=== PATIENT | male | born 1940 | race Caucasian/White ===

== ENCOUNTER 2021-08-13 16:02 | Inpatient (IN) | payer BC ==
[~2021-08-13] VITALS: Ht 175.3 cm; Wt 78.9 kg
--- NOTE | 2021-08-13 16:26 | NUR ---
FEVER/CHILLS, SOB SINCE MONDAY. ALSO C/O GLF AT THE SAME DAY. PATIENT A/OX4, BREATHING EVEN AND UNLABORED, SPO2 WITHIN RANGE ON ROOM AIR. NEEDS ATTENDED.
--- NOTE | 2021-08-13 16:40 | NUR ---
DR. MOSS AT BEDSIDE FOR EVAL.
[2021-08-13] MEDS ORDERED: IV NS 0.9% 1,000 ML BAG IV ONE ×2 (17:00→20:00)
[2021-08-13 17:50] LABS: BASOPHILS % (AUTO) 0.1 % (0.0-2.0); EOSINOPHILS % (AUTO) 0.5 % (0.0-6.0); HEMATOCRIT 48 % (39-51); HEMOGLOBIN 15.8 g/dL (13.5-17.5); LYMPHOCYTES # (AUTO) 0.3 K/uL (0.8-4.8); LYMPHOCYTES % (AUTO) 3.7 % (20.0-44.0); MEAN CORPUSCULAR HGB CONC 33 g/dl (31.0-36.0); MEAN CORPUSCULAR VOLUME 93 fL (80-96); MONOCYTES # (AUTO) 0.3 K/uL (0.1-1.30); MONOCYTES % (AUTO) 3.2 % (2.0-12.0); NEUTROPHILS # (AUTO) 7.4 K/uL (1.8-8.9); NEUTROPHILS % (AUTO) 92.5 % (43.0-81.0); PLATELET COUNT (AUTO) 125 K/uL (150-450); RED BLOOD CELL COUNT(AUTO) 5.09 MIL/uL (4.5-6.0)
[2021-08-13 18:03] LABS: CALCIUM, SERUM 9.5 mg/dL (8.5-10.1); CARBON DIOXIDE 24 mmol/L (21-32); CHLORIDE 104 mmol/L (98-107); GLUCOSE 86 mg/dL (74-106); SODIUM SERUM 139 mmol/L (136-145); UREA NITROGEN, BLOOD 28 mg/dL (7-18)
[2021-08-13 18:09] LABS: ALANINE AMINOTRANSFERASE 49 U/L (12-78); ALBUMIN 4.1 g/dL (3.4-5.0); ALKALINE PHOSPHATASE 116 U/L (46-116); ASPARTATE AMINOTRANSFERASE 64 U/L (15-37); BILIRUBIN,DIRECT 0.3 mg/dL (0.0-0.2); BILIRUBIN,TOTAL 1.1 mg/dL (0.2-1.0); TOTAL PROTEIN, SERUM 8.4 g/dL (6.4-8.2)
--- NOTE | 2021-08-13 19:08 | NUR ---
URINE SENT TO LAB
--- NOTE | 2021-08-13 19:10 | NUR ---
GAVE MOVESHEET AND CLINICALS TO ADMITTING
--- NOTE | 2021-08-13 19:30 | NUR ---
COVID SWAB COLLECTED AND SENT TO LAB
[2021-08-13 19:36] LABS: BILIRUBIN,URINE SMALL (NEGATIVE); COLOR,URINE YELLOW (YELLOW); LEUKOCYTE ESTERASE ,URINE Negative (NEGATIVE); NITRITE, URINE Negative (NEGATIVE); PH,URINE 5.5 (5.0-8.0); PROTEIN,URINE >=300 mg/dl (NEGATIVE); UGLUCOSE Negative (NEGATIVE)
[2021-08-13 19:41] LABS: BACTERIA,URINE Rare /HPF (None Seen); SQUAMOUS EPITHELIAL CELL,UR Few /HPF (None Seen); WBC,URINE NONE SEEN /HPF (0-3)
[2021-08-13] MEDS ORDERED: VANCOMYCIN 1 GM in IV D5W 250 ML IV ONE (20:00)
[2021-08-13] MEDS ORDERED: CEFEPIME 1 GM in IV D5W 50 ML IV ONE (20:00)
--- NOTE | 2021-08-13 20:07 | NUR ---
CALLED [facility], PAGED ALYSHA COY FOR ADMISSION
[2021-08-13] MEDS ORDERED: VANCOMYCIN 1 GM VIAL ONE (20:16)
[2021-08-13] MEDS ORDERED: CEFEPIME 1 GM VIAL ONE (20:23)
[2021-08-13] MEDS ORDERED: CEFEPIME 1 GM in IV D5W 50 ML IV SCH (20:30)
[2021-08-13] MEDS ORDERED: IPRATROPIUM NEB FS 0.5 MG/2.5 ML AMPUL.NEB NEB PRN (20:30)
[2021-08-13] MEDS ORDERED: ALBUTEROL FS 2.5 MG/3 ML VIAL.NEB NEB PRN (20:30)
--- NOTE | 2021-08-13 21:02 | NUR ---
Bibi najera in [facility] - 08/13/21 at 2112 by RUT room 329
[2021-08-13 21:25] LABS: C-REACTIVE PROTEIN 9.8 mg/dL (0.0-0.9)
--- NOTE | 2021-08-13 22:26 | NUR ---
TELE 106
--- NOTE | 2021-08-13 23:30 | NUR ---
RN ADMITTING NOTE PATIENT TRANSFERRED TO 106-1 FROM ER. PATIENT IS A/O X 4, ABLE TO MAKE NEEDS KNOWN. PATIENT NOTICED TO HAVE SOB, 2 L O2 PROVIDED SATTING 96%. PATIENT COMPLAINS OF R RIB PAIN D/T GLF ON MONDAY. SKIN ISSUES DOCUMENTED. PATIENT BROUGHT HOME MEDS, WILL GIVE TO PHARMACY IN AM. PATIENT IS CONTINENT OF BOTH BOWEL AND BLADDER. TELE MONITOR READS SR 80 BPM. BELONGINGS INVENTORIED. ORIENTED PATIENT TO ROOM, RN, OMAYRA. SAFETY MEASURES IN PLACE: BED LOCKED AND IN LOWEST POSITION, CALL LIGHT WITHIN REACH, SIDE RAILS UP. WILL MONITOR PATIENT CLOSELY.
--- NOTE | 2021-08-13 23:32 | NUR ---
ATTEMPTED TO GIVE REPORT, STAFF STATES THAT THEY WILL CALL ME BACK.
--- NOTE | 2021-08-13 23:43 | NUR ---
REPORT GIVEN TO JERE GUERIN FOR ANNA.
[2021-08-14] VITALS: BP 155/78
[2021-08-14] MEDS ORDERED: AMLO-212 PO (00:57)
[2021-08-14] MEDS ORDERED: ATOR80TA PO (00:57)
[2021-08-14] MEDS ORDERED: GABA-532 PO (00:57)
[2021-08-14] MEDS ORDERED: DIAZ10TA4 PO (00:57)
[2021-08-14] MEDS ORDERED: MIRT-90 PO (00:57)
[2021-08-14] MEDS: IV NS 0.9% 1,000 ML IV PRN ×2 (01:11→21:05)
--- NOTE | 2021-08-14 01:30 | NUR ---
RN NOTE NOTIFIED ALYSHA COY OF PATIENT'S RIB PAIN AND REQUEST TO HAVE IBUPROFEN FOR PAIN AND VALIUM FOR HIS ANXIETY AND FOR SLEEP. MD INSTRUCTED NURSING TO CALL HOME PHARMACY TO VERIFY DOSE OF VALIUM FIRST BEFORE IT CAN BE ORDERED. CALLED [facility] [address] [facility] [phone], CLOSED AT THIS TIME. WILL ENDORSE TO DAY SHIFT NURSE. OBTAINED ORDER FOR IBUPROFEN 400 MG RID PRN AND SEROQUEL 12.5 MG ONCE NOW.
[2021-08-14] MEDS ORDERED: IBUPROFEN 400 MG TABLET PO PRN (02:00)
[2021-08-14] MEDS ORDERED: QUETIAPINE FUMARATE 25 MG TABLET PO ONE (02:00)
--- NOTE | 2021-08-14 02:05 | NUR ---
RN NOTE PATIENT DROPPED FIRST 1/2 TAB OF SEROQUEL. PULLED ANOTHER TAB FROM PYXSIS. SEROQUEL GIVEN TO AID SLEEP AND IBUPROFEN ADMINISTERED FOR RIB PAIN.
--- NOTE | 2021-08-14 03:04 | NUR ---
REFUSES TO HAVE IVF AT THIS TIME. EDUCATION OF RISK AND BENEFITS PROVIDED. STILL REFUSING.
[2021-08-14 04:00] VITALS: BP 104/60
--- NOTE | 2021-08-14 04:15 | NUR ---
REFUSED TO HAVE VITAL SIGNS TAKEN FOR 399. WILL TRY TO TAKE VITALS AT A LATER TIME.
[2021-08-14 06:30] LABS: BASOPHILS % (AUTO) 0.1 % (0.0-2.0); EOSINOPHILS % (AUTO) 0.5 % (0.0-6.0); HEMATOCRIT 40 % (39-51); HEMOGLOBIN 13.5 g/dL (13.5-17.5); LYMPHOCYTES # (AUTO) 0.5 K/uL (0.8-4.8); LYMPHOCYTES % (AUTO) 9.5 % (20.0-44.0); MEAN CORPUSCULAR HGB CONC 34 g/dl (31.0-36.0); MEAN CORPUSCULAR VOLUME 92 fL (80-96); MONOCYTES # (AUTO) 0.3 K/uL (0.1-1.30); MONOCYTES % (AUTO) 5.6 % (2.0-12.0); NEUTROPHILS # (AUTO) 4.4 K/uL (1.8-8.9); NEUTROPHILS % (AUTO) 84.3 % (43.0-81.0); PLATELET COUNT (AUTO) 89 K/uL (150-450); RED BLOOD CELL COUNT(AUTO) 4.32 MIL/uL (4.5-6.0); WHITE BLOOD COUNT (AUTO) 5.2 K/uL (4.3-11.0)
--- NOTE | 2021-08-14 06:30 | NUR ---
RN CLOSING NOTE PATIENT HAS EYES CLOSED, EASILY AROUSED. A/O X 4, ABLE TO MAKE NEEDS KNOWN. PATIENT VERBALIZES THAT HE WOULD LIKE TO BE "BOTHERED" LESS. PATIENT TOLERATING 2L O2 SUPPLEMENTATION AT 95-96% O2 SAT, SOB AT REST NOTED. TELE MONITOR READS SR 82 BPM. PATIENT HAS A RFA 18 G, SALINE LOCKED AT THIS TIME D/T PATIENT REFUSAL. MD NOTIFIED OF INCREASED TROPONIN OF 0.207. SAFETY MEASURES IMPLEMENTED. ALL NEEDS MET AND ATTENDED. ALL ORDERS CARRIED OUT. WILL ENDORSE TO DAY SHIFT NURSE FOR ANNA.
[2021-08-14 07:00] LABS: ALANINE AMINOTRANSFERASE 31 U/L (12-78); ALBUMIN 2.7 g/dL (3.4-5.0); ALKALINE PHOSPHATASE 84 U/L (46-116); ASPARTATE AMINOTRANSFERASE 49 U/L (15-37); BILIRUBIN,TOTAL 0.8 mg/dL (0.2-1.0); CARBON DIOXIDE 22 mmol/L (21-32); CHLORIDE 109 mmol/L (98-107); CREATININE 2.7 mg/dL (0.6-1.3); GLUCOSE 108 mg/dL (74-106); MAGNESIUM 1.8 mg/dL (1.8-2.4); PHOSPHORUS 3.2 mg/dL (2.5-4.9); POTASSIUM 4.6 mmol/L (3.5-5.1); SODIUM SERUM 140 mmol/L (136-145); TOTAL PROTEIN, SERUM 5.9 g/dL (6.4-8.2); UREA NITROGEN, BLOOD 31 mg/dL (7-18)
--- NOTE | 2021-08-14 07:23 | NUR ---
RN OPENING NOTE RECEIVED PATIENT RESTING IN BED EASILY AROUSED. PATIENT IS A/O X 4, ABLE TO MAKE NEEDS KNOWN. PATIENT IS BREATHING EVENLY AND NONLABORED ON 2 LPM O2 SUPPLEMENTATION, NO SIGNS OF DISTRESS NOTED. TELE MONITOR READS SR. PATIENT HAS A RFA 18 G, SALINE LOCKED AT THIS TIME D/T PATIENT REFUSAL OF IV FLUIDS. PATIENT DOES NOT COMPLAIN OF PAIN AT THIS TIME. SAFETY MEASURES IMPLEMENTED. BED LOW LOCKED AND CALL LIGHT WITHIN REACH. WILL CONTINUE TO MONITOR
[2021-08-14 07:25] LABS: CHOLESTEROL 94 mg/dL (<200); HDL CHOLESTEROL 38 mg/dL (40-60); LDL 39 mg/dL (0-99); THYROID STIMULATING HORMONE 0.892 uIU/mL (0.358-3.74); TRIGLYCERIDES 76 mg/dL (30-150)
[2021-08-14] MEDS: CEFEPIME 2 GM in IV D5W 100 ML IV SCH ×2 (07:51→21:04)
[2021-08-14 08:00] VITALS: BP 108/74
[2021-08-14] MEDS: ASPIRIN 81 MG TAB.CHEW PO SCH (08:45)
[2021-08-14] MEDS ORDERED: ENOXAPARIN SODIUM 40 MG/0.4 ML DISP.SYRIN SQ SCH (09:00)
[2021-08-14 09:03] LABS: THYROID STIMULATING HORMONE 0.875 uIU/mL (0.358-3.74)
[2021-08-14 12:06] VITALS: BP 126/64
[2021-08-14 16:17] VITALS: BP 144/87
--- NOTE | 2021-08-14 18:25 | NUR ---
RN CLOSING NOTE PATIENT RESTING IN BED EASILY AROUSED. PATIENT IS A/O X 4, ABLE TO MAKE NEEDS KNOWN. PATIENT IS BREATHING EVENLY AND NONLABORED ON 2 LPM O2 SUPPLEMENTATION, NO SIGNS OF DISTRESS NOTED. TELE MONITOR READS SR. PATIENT HAS A RFA 18 G, SALINE LOCKED AT THIS TIME D/T PATIENT REFUSAL OF IV FLUIDS. EXPLAINED RISK AND BENEFITS STILL REFUSED. PATIENT DOES NOT COMPLAIN OF PAIN AT THIS TIME. ALL MEDICATION GIVEN ORDERED SAFETY MEASURES IMPLEMENTED. BED LOW LOCKED AND CALL LIGHT WITHIN REACH. WILL ENDORSE TO ONCOMING SHIFT
[2021-08-14 20:00] VITALS: BP 160/90
[2021-08-14] MEDS ORDERED: VANCOMYCIN 1 GM in IV D5W 250 ML IV SCH (21:00)
[2021-08-14] MEDS: HEPARIN SODIUM, PORCINE 5000 UNITS/1 ML VIAL SQ SCH (21:04)
[2021-08-15] VITALS (7 sets, daily range): BP systolic 139–177; BP diastolic 72–91
[2021-08-15] MEDS ORDERED: GABAPENTIN 100 MG CAPSULE PO SCH (03:30)
[2021-08-15] MEDS ORDERED: DIAZEPAM 10 MG TABLET PO PRN (03:30)
[2021-08-15] MEDS ORDERED: DIAZEPAM 5 MG TABLET PO ONE (03:30)
[2021-08-15] MEDS: DIAZEPAM 5 MG TABLET PO PRN (04:52)
[2021-08-15] MEDS ORDERED: hydrALAZINE HCL IV 20 MG VIAL IV ONE (05:00)
--- NOTE | 2021-08-15 05:35 | NUR ---
RN notes Alert and oriented, on 2lpm O2 via nasal cannula tolerating well. Complaining of pain on left shoulder. Asking for advil. MD refused to order Advil. It is contraindicated for his worsening renal function. Warm compress applied with help. Patient wants all his medicines that was placed in the pharmacy for safekeeping. Explained the hospital policy. Patient was very agitated. BP went up to 177/86. Administered hydralazine ordered by MD PRN. Gave diazepam 10mg with help. Patient continue to ask for his medication and threatens to alla the hospital and leave in the morning. MD/hemodialysis charge nurse aware. Kept clean and dry. Will endorse to next shift for continuity of care.
--- NOTE | 2021-08-15 07:22 | NUR ---
NURSE OPENING NOTE RECEIVE REPORT FROM OUT GOING NURSE. PATIENT IS A/O X4. PATIENT IS AMBULATORY. PATIENT IS REFUSED TO HAVE ANYTHING OB/GYN PHYSICIAN TO IV. PATIENT REFUSE MEDICATION AND IV FLUID. PATIENT REFUSE BLOOD DRAWN. WILL CONTINUE TO MONITOR.
[2021-08-15] MEDS: ASPIRIN 81 MG TAB.CHEW PO SCH (08:53)
[2021-08-15] MEDS: CEFEPIME 2 GM in IV D5W 100 ML IV SCH ×2 (08:53→20:41)
[2021-08-15] MEDS: AMLODIPINE BESYLATE 5 MG TABLET PO SCH (08:53)
[2021-08-15] MEDS: HEPARIN SODIUM, PORCINE 5000 UNITS/1 ML VIAL SQ SCH (08:54)
[2021-08-15] MEDS: IV NS 0.9% 1,000 ML IV PRN (11:33)
[2021-08-15 12:48] LABS: BASOPHILS % (AUTO) 0.1 % (0.0-2.0); EOSINOPHILS % (AUTO) 0.8 % (0.0-6.0); HEMATOCRIT 43 % (39-51); HEMOGLOBIN 14.6 g/dL (13.5-17.5); LYMPHOCYTES # (AUTO) 0.3 K/uL (0.8-4.8); LYMPHOCYTES % (AUTO) 8.9 % (20.0-44.0); MEAN CORPUSCULAR HGB CONC 34 g/dl (31.0-36.0); MEAN CORPUSCULAR VOLUME 92 fL (80-96); MONOCYTES # (AUTO) 0.2 K/uL (0.1-1.30); MONOCYTES % (AUTO) 5.3 % (2.0-12.0); NEUTROPHILS # (AUTO) 3.2 K/uL (1.8-8.9); NEUTROPHILS % (AUTO) 84.9 % (43.0-81.0); PLATELET COUNT (AUTO) 61 K/uL (150-450); RED BLOOD CELL COUNT(AUTO) 4.67 MIL/uL (4.5-6.0); WHITE BLOOD COUNT (AUTO) 3.7 K/uL (4.3-11.0)
[2021-08-15 12:58] LABS: ALANINE AMINOTRANSFERASE 36 U/L (12-78); ALBUMIN 2.7 g/dL (3.4-5.0); ALKALINE PHOSPHATASE 90 U/L (46-116); ASPARTATE AMINOTRANSFERASE 61 U/L (15-37); CALCIUM, SERUM 8.3 mg/dL (8.5-10.1); CARBON DIOXIDE 16 mmol/L (21-32); CHLORIDE 107 mmol/L (98-107); CREATININE 6.1 mg/dL (0.6-1.3); GLUCOSE 103 mg/dL (74-106); MAGNESIUM 1.7 mg/dL (1.8-2.4); PHOSPHORUS 2.7 mg/dL (2.5-4.9); POTASSIUM 4.3 mmol/L (3.5-5.1); SODIUM SERUM 137 mmol/L (136-145); TOTAL PROTEIN, SERUM 6.4 g/dL (6.4-8.2); UREA NITROGEN, BLOOD 51 mg/dL (7-18)
[2021-08-15 13:00] LABS: CREATINE KINASE, TOTAL 666 U/L (39-308)
--- NOTE | 2021-08-15 19:40 | NUR ---
RN NOTE PATIENT IN BED ALERT AND ORIENTED X4. ABLE TO MAKE NEEDS KNOWN. ON O2 2L VIA NASAL CANNULA, NO SIGNS OF RESPIRATORY DISTRESS. IV ACCESS ON LEFT AC RUNNING NS @50ML/HR, NO S/S OF INFILTRATION. BED LOCKED AND IN LOWEST POSITION. CALL LIGHT WITHIN REACH. ALL NEEDS ANTICIPATED.
--- NOTE | 2021-08-15 19:57 | NUR ---
NURSE CLOSING NOTE. PATIENT BEEN STABLE THROUGHOUT SHIFT. TOOK ALL MEDICATION. ORDER TO STOP LOVONOX. PATIENT GETTING CARDIO ANGIOGRAM TOMORROW MORNING. SAFETY MEASURE IN PLACE. BED ON THE LOWEST POSITION WITH HOB ELEVATED AND 3 SIDE RAIL UP. REPORT WAS GIVEN TO ON COMING NURSE.
--- NOTE | 2021-08-15 19:59 | NUR ---
DOCTOR SONG AND DOCTOR SCRUGGS CONFIRM ITS OK TO REMOVE GENETICS NURSE.
[2021-08-15] MEDS: MIRTAZAPINE 15 MG TABLET PO SCH (21:16)
[2021-08-15] MEDS: ATORVASTATIN 40 MG TABLET PO SCH (21:16)
--- NOTE | 2021-08-15 22:28 | NUR ---
RN NOTE PATIENT REFUSING IVF AT THIS TIME, RISKS AND BENEFITS EXPLAINED. STILL STRONGLY REFUSED.
[2021-08-16 04:00] VITALS: BP 141/79
[2021-08-16 06:17] LABS: BASOPHILS % (AUTO) 0.1 % (0.0-2.0); EOSINOPHILS % (AUTO) 3.3 % (0.0-6.0); HEMATOCRIT 36 % (39-51); HEMOGLOBIN 12.6 g/dL (13.5-17.5); LYMPHOCYTES # (AUTO) 0.4 K/uL (0.8-4.8); LYMPHOCYTES % (AUTO) 7.5 % (20.0-44.0); MEAN CORPUSCULAR HGB CONC 35 g/dl (31.0-36.0); MEAN CORPUSCULAR VOLUME 91 fL (80-96); MONOCYTES # (AUTO) 0.2 K/uL (0.1-1.30); MONOCYTES % (AUTO) 3.7 % (2.0-12.0); NEUTROPHILS # (AUTO) 4.2 K/uL (1.8-8.9); NEUTROPHILS % (AUTO) 85.4 % (43.0-81.0); PLATELET COUNT (AUTO) 69 K/uL (150-450); RED BLOOD CELL COUNT(AUTO) 4.01 MIL/uL (4.5-6.0); WHITE BLOOD COUNT (AUTO) 4.9 K/uL (4.3-11.0)
[2021-08-16 06:41] LABS: CALCIUM, SERUM 8.2 mg/dL (8.5-10.1); CARBON DIOXIDE 17 mmol/L (21-32); CHLORIDE 109 mmol/L (98-107); GLUCOSE 93 mg/dL (74-106); MAGNESIUM 1.7 mg/dL (1.8-2.4); PHOSPHORUS 3.1 mg/dL (2.5-4.9); POTASSIUM 4.4 mmol/L (3.5-5.1); SODIUM SERUM 139 mmol/L (136-145); UREA NITROGEN, BLOOD 65 mg/dL (7-18)
--- NOTE | 2021-08-16 06:46 | NUR ---
RN NOTE PATIENT RESTING IN BED. REFUSING O2 NASAL CANNULA AT THIS TIME, O2 SAT 96% IN ROOM AIR. ALSO REFUSING IVF, PATIENT STATED "HE WANTS TO REST." ALL NEEDS ATTENDED PROMPTLY. BED LOCKED AND IN LOWEST POSITION. CALL LIGHT WITHIN REACH. WILL ENDORSE TO AM SHIFT.
[2021-08-16 06:51] LABS: CREATININE 7.5 mg/dL (0.6-1.3)
--- NOTE | 2021-08-16 07:31 | NUR ---
NURSE OPENING NURSE PATIENT IS COMFORTABLE AND IN STABLE CONDITION. REFUSING NASAL CANULA. SATING AT 96-97%. A/O X4. ON MED SURG MONITORING. PATIENT REFUSE IV HYDRATION. SAFETY MEASURE IN PLACE. BED ON THE LOWEST POSITION WITH HOB ELEVATED AND 3 SIDE RAIL UP. WILL CONTINUE TO MONITOR.
[2021-08-16] MEDS: CEFEPIME 2 GM in IV D5W 100 ML IV SCH (08:05)
[2021-08-16] MEDS: AMLODIPINE BESYLATE 5 MG TABLET PO SCH (08:06)
[2021-08-16] MEDS: ASPIRIN 81 MG TAB.CHEW PO SCH (08:17)
--- NOTE | 2021-08-16 08:18 | NUR ---
NURSE NOTE PATIENT REFUSE ASPIRIN
--- NOTE | 2021-08-16 09:26 | NUR ---
WOUND CARE CONSULT: REVIEWED CHART, NURSING DOCUMENTATION AND PHOTOS WHICH INDICATE DRY ABRASIONS TO LOWER EXTREMITIES, PRESENT ON ADMISSION. RECOMMENDATIONS MADE FOR SKIN PROTECTION. DISCUSSED WITH NURSING STAFF. PT IS ON [employer]SE ISOFLEX LOW AIRLOSS BED. CURRENT KAYLEE SCORE IS 16. MD IN AGREEMENT WITH PLAN OF CARE.
[2021-08-16] MEDS ORDERED: Z GUARD REMEDY 2 OZ OINT TP PRN (09:30)
[2021-08-16] MEDS: Sodium Bicarbonate 100 MEQ in IV 1/2NS 1000 ML 1,000 ML IV SCH ×2 (11:34→21:30)
[2021-08-16] MEDS: Z GUARD REMEDY 2 OZ OINT TP SCH (11:35)
[2021-08-16 11:46] LABS: THYROID STIMULATING HORMONE 0.652 uIU/mL (0.358-3.74)
[2021-08-16 12:00] VITALS: BP 123/66
[2021-08-16] MEDS: Magnesium 1GM/D5W 100ML PREMIX 100 ML IV SCH ×2 (15:14→18:30)
--- NOTE | 2021-08-16 18:18 | NUR ---
NURSE OPENING NOTE PATIENT MAINTAIN BASELINE CONDITION THROUGH OUT SHIFT. REMAIN ON 2L OF OXYGEN SATING @96-97%. A/O X4. AMBULATE WITH ASSISTANCE. DID NOT EAT ANY FOOD GIVEN FOR BREAKFAST, LUNCH, AND DINER. HAD 3 JELLOW. PATIENT NEED TO BE NPO AFTER MIDNIGHT. PATIENT WILL GET CT AND ULTRASOUND IN THE MORNING. PATIENT IS GETTING MAGNESIUM SULFATE 2G AND SODIUM BICARB DRIP. SAFETY MEASURE IN PLACE BED ON THE LOWEST POSITION WITH HOB ELEVATED AND 3 SIDE RAIL UP. CALL LIGHT WITHIN REACH. WILL CONTINUE TO MONITOR AND GIVE REPORT TO ON COMING NURSE.
--- NOTE | 2021-08-16 19:30 | NUR ---
RN NOTE RECEIVED PT IN BED, ALERT AND ORIENTED X4. NOT IN ANY DISTRESS. PT ON 2L NC. DENIES SOB OR PAIN. PT ON NA BICARB IN 1/2NS AT 100 ML/HR. INFUSING WELL. PT AWAITING TO BE TRANSFERRED TO ROOM 328. WILL MONITOR UNTIL TRANSFER. ALL SAFETY MEASURES IN PLACE.
--- NOTE | 2021-08-16 20:09 | NUR ---
RN NOTE PT GOING TO RM 328. REPORT GIVEN TO TEMO.
--- NOTE | 2021-08-16 20:18 | NUR ---
PATIENT ARRIVED ON THE FLOOR FROM [place], AWAKE. A/O X4, FORGETFUL. NO S/S OF DISTRESS NOTED. NO COMPLAIN OF PAIN. CALL LIGHT WITHIN REACH. BED ALARM ON. BED IN LOWEST AND LOCKED POSITION. HOB ELEVATED. WITH O2 AT 2L/MIN NASAL CANNULA.REMINDED THE PT RE: URINE COLLECTION AND STOOL COLLECTION, PATIENT VERBALIZED UNDERSTANDING.NPO POST MN EXCEPT MEDS PATIENT VERBALIZED UNDERSTANDING. OMAYRA RECINOS AWARE.
[2021-08-16 20:52] VITALS: BP 132/61
[2021-08-16 21:00] VITALS: BP 132/61
[2021-08-16] MEDS: MIRTAZAPINE 15 MG TABLET PO SCH (22:00)
[2021-08-16] MEDS: ATORVASTATIN 40 MG TABLET PO SCH (22:00)
[2021-08-17 02:07] LABS: CREATININE KINASE (CK),MB 3.1 ng/mL (0.0-10.4)
[2021-08-17] MEDS: Sodium Bicarbonate 100 MEQ in IV 1/2NS 1000 ML 1,000 ML IV SCH (07:30)
[2021-08-17 08:00] VITALS: BP 148/76
[2021-08-17 08:07] LABS: *SPE ALPHA-1-GLOBULIN 0.4 g/dL (0.0-0.4); *SPE ALPHA-2-GLOBULIN 0.8 g/dL (0.4-1.0); *SPE BETA GLOBULIN 0.5 g/dL (0.7-1.3); *SPE M-SPIKE 0.9 g/dL (Not Observed)
[2021-08-17] MEDS: GABAPENTIN 100 MG CAPSULE PO PRN (08:37)
--- NOTE | 2021-08-17 08:47 | NUR ---
given neurontin for generalized pain.
[2021-08-17 08:57] LABS: BASOPHILS % (AUTO) 0.3 % (0.0-2.0); EOSINOPHILS % (AUTO) 6.1 % (0.0-6.0); HEMATOCRIT 39 % (39-51); HEMOGLOBIN 13.1 g/dL (13.5-17.5); LYMPHOCYTES # (AUTO) 0.4 K/uL (0.8-4.8); LYMPHOCYTES % (AUTO) 9.6 % (20.0-44.0); MEAN CORPUSCULAR HGB CONC 34 g/dl (31.0-36.0); MEAN CORPUSCULAR VOLUME 92 fL (80-96); MONOCYTES # (AUTO) 0.2 K/uL (0.1-1.30); MONOCYTES % (AUTO) 5.4 % (2.0-12.0); NEUTROPHILS # (AUTO) 3.1 K/uL (1.8-8.9); NEUTROPHILS % (AUTO) 78.6 % (43.0-81.0); RED BLOOD CELL COUNT(AUTO) 4.21 MIL/uL (4.5-6.0); WHITE BLOOD COUNT (AUTO) 3.9 K/uL (4.3-11.0)
[2021-08-17] MEDS: ASPIRIN 81 MG TAB.CHEW PO SCH ×2 (09:00→09:56)
[2021-08-17 09:07] LABS: PLATELET COUNT (AUTO) 50 K/uL (150-450)
[2021-08-17 09:15] LABS: CALCIUM, SERUM 8.5 mg/dL (8.5-10.1); CARBON DIOXIDE 17 mmol/L (21-32); CHLORIDE 107 mmol/L (98-107); GLUCOSE 86 mg/dL (74-106); MAGNESIUM 2.5 mg/dL (1.8-2.4); PHOSPHORUS 2.8 mg/dL (2.5-4.9); POTASSIUM 4.6 mmol/L (3.5-5.1); SODIUM SERUM 140 mmol/L (136-145)
[2021-08-17 09:16] LABS: UREA NITROGEN, BLOOD 82 mg/dL (7-18)
[2021-08-17 09:17] LABS: CREATININE 9.8 mg/dL (0.6-1.3)
[2021-08-17] MEDS: AMLODIPINE BESYLATE 5 MG TABLET PO SCH (09:55)
[2021-08-17] MEDS: Z GUARD REMEDY 2 OZ OINT TP SCH (09:57)
[2021-08-17 10:06] LABS: BAND % (MANUAL) 7 % (0.0-5.0); EOSINOPHILS % (MANUAL) 6 % (0-4); LYMPHOCYTES % (MANUAL) 10 % (16-48); MONOCYTES % (MANUAL) 4 % (0-11.0); NEUTROPHILS % (MANUAL) 72 (42-76); REACTIVE LYMPHOCYTES 1 % (0-0)
[2021-08-17] MEDS: Sodium Bicarbonate 100 MEQ in IV 1/2NS 1000 ML 1,000 ML IV PRN (12:49)
--- NOTE | 2021-08-17 15:00 | NUR ---
urine and stool specimens sent down as ordered.
[2021-08-17 16:32] VITALS: BP 136/92
--- NOTE | 2021-08-17 16:40 | NUR ---
C/O IV LEAKING AND EVERY TIME RN IN TO RM. PT. REFUSES IV RESTART.COMPLAINING OFTEN.
[2021-08-17 17:05] LABS: COLOR,URINE DARK YELLOW (YELLOW); PH,URINE 5.5 (5.0-8.0); PROTEIN,URINE >300 mg/dl (NEGATIVE)
[2021-08-17 17:06] LABS: BILIRUBIN,URINE SMALL (NEGATIVE); LEUKOCYTE ESTERASE ,URINE NEGATIVE (NEGATIVE); NITRITE, URINE NEGATIVE (NEGATIVE); UGLUCOSE NEGATIVE (NEGATIVE); UROBILINOGEN,URINE 0.2 EU/dL (0.2)
[2021-08-17 17:14] LABS: BACTERIA,URINE Moderate /HPF (None Seen); SQUAMOUS EPITHELIAL CELL,UR Moderate /HPF (None Seen)
[2021-08-17 17:15] LABS: FINE GRANULAR CASTS,URINE Moderate /LPF (None Seen)
[2021-08-17 17:47] LABS: CREATININE, URINE 275.3 MG/DL (30.0-125.0)
[2021-08-17 18:05] LABS: URINE TOTAL PROTEIN 2427.8 mg/dL (0-11.9)
[2021-08-17 18:19] LABS: EOSINOPHIL,URINE None Seen
--- NOTE | 2021-08-17 19:20 | NUR ---
MS RN OPENING NOTES: RECEIVED PATIENT IN BED, RESTING COMFORTABLY, A/O X4. NO S/S OF DISTRESS NOTED. NO COMPLAIN OF PAIN. CALL LIGHT WITHIN REACH. BED IN LOWEST AND LOCKED POSITION. BEDSIDE COMMODE NEAR THE PATIENT.
[2021-08-17 20:00] VITALS: BP 168/80
[2021-08-17] MEDS: MIRTAZAPINE 15 MG TABLET PO SCH (21:50)
[2021-08-17] MEDS: TEMAZEPAM 15 MG CAPSULE PO SCH (21:50)
[2021-08-17] MEDS: ATORVASTATIN 40 MG TABLET PO SCH (21:50)
--- NOTE | 2021-08-18 06:17 | NUR ---
MS RN CLOSING NOTES: PATIENT IN BED, ASLEEP, EASILY AROUSABLE. NO S/S OF DISTRESS NOTED. CALL LIGHT WITHIN REACH. BED IN LOWEST AND LOCKED POSITION. BED ALARM ON. NO COMPLAIN OF PAIN.
[2021-08-18 07:38] LABS: CALCIUM, SERUM 8.5 mg/dL (8.5-10.1); CARBON DIOXIDE 19 mmol/L (21-32); CHLORIDE 106 mmol/L (98-107); GLUCOSE 87 mg/dL (74-106); MAGNESIUM 2.4 mg/dL (1.8-2.4); PHOSPHORUS 3.1 mg/dL (2.5-4.9); POTASSIUM 4.2 mmol/L (3.5-5.1); SODIUM SERUM 139 mmol/L (136-145)
[2021-08-18 07:41] LABS: BASOPHILS % (AUTO) 0.2 % (0.0-2.0); CREATININE 10.7 mg/dL (0.6-1.3); EOSINOPHILS % (AUTO) 7.3 % (0.0-6.0); HEMATOCRIT 35 % (39-51); HEMOGLOBIN 12.2 g/dL (13.5-17.5); LYMPHOCYTES # (AUTO) 0.6 K/uL (0.8-4.8); LYMPHOCYTES % (AUTO) 13.8 % (20.0-44.0); MEAN CORPUSCULAR HGB CONC 34 g/dl (31.0-36.0); MEAN CORPUSCULAR VOLUME 91 fL (80-96); MONOCYTES # (AUTO) 0.3 K/uL (0.1-1.30); NEUTROPHILS # (AUTO) 2.9 K/uL (1.8-8.9); NEUTROPHILS % (AUTO) 70.7 % (43.0-81.0); PLATELET COUNT (AUTO) 63 K/uL (150-450); RED BLOOD CELL COUNT(AUTO) 3.89 MIL/uL (4.5-6.0); UREA NITROGEN, BLOOD 94 mg/dL (7-18); WHITE BLOOD COUNT (AUTO) 4.2 K/uL (4.3-11.0)
--- NOTE | 2021-08-18 07:48 | NUR ---
MS RN OPENING NOTES RECEIVED PATIENT IN BED, RESTING COMFORTABLY. A/O X4. ON RA, BREATHING EVENLY AND UNLABORED. NO S/S OF DISTRESS NOTED. IV ACCESS ON RFA #22 1/2 NS + 50 MEQ NA BICARB RUNNING AT 100 ML/HR. BEDSIDE COMMODE NEAR THE PATIENT. SAFETY PRECAUTIONS IN PLACE: BED IN LOWEST AND LOCKED POSITION, SIDERAILS UP X 2, CALL LIGHT WITHIN REACH. WILL CONTINUE TO MONITOR PATIENT.
[2021-08-18 08:00] VITALS: BP 129/98
[2021-08-18] MEDS: ASPIRIN 81 MG TAB.CHEW PO SCH ×2 (08:19→08:27)
[2021-08-18] MEDS: AMLODIPINE BESYLATE 5 MG TABLET PO SCH (08:20)
[2021-08-18] MEDS: Z GUARD REMEDY 2 OZ OINT TP SCH (08:21)
[2021-08-18 11:07] LABS: *ANCANTIMYELOPEROXIDASE (MPO) <9.0 U/mL (0.0-9.0)
[2021-08-18] MEDS: Sodium Bicarbonate 100 MEQ in IV 1/2NS 1000 ML 1,000 ML IV PRN (11:09)
[2021-08-18] MEDS: ACIDOPHILUS/BULGARICUS 1 EACH TAB.CHEW PO SCH ×2 (12:11→16:23)
[2021-08-18 13:07] LABS: *ANCA ATYPICAL p-ANCA <1:20 titer (Neg:<1:20); *ANCA CYTOPLASMIC (C-ANCA) <1:20 titer (Neg:<1:20); *ANCA PERINUCLEAR (P-ANCA) <1:20 titer (Neg:<1:20); *ANCANTIPROTEINASE 3 (PR-3) AB 7.4 U/mL (0.0-3.5)
[2021-08-18] MEDS: HYDROCODONE/APAP 10/325MG TABLET PO PRN (15:15)
--- NOTE | 2021-08-18 15:15 | NUR ---
RN NOTE PATIENT COMPLAINED OF SEVERE RIB PAIN 07/09. MD MADE AWARE WITH NEW ORDER FOR NORCO 10/325 Q6HRS PRN AND CHEST XRAY TOMORROW AM. VITALS WNL, WILL CONTINUE TO MONITOR
[2021-08-18 16:00] VITALS: BP 161/78
--- NOTE | 2021-08-18 17:10 | NUR ---
RN NOTE PER DR ANGELES, HEMODIALYSIS CATHETER IN FEMORAL OKAY TO USE FOR DIALYSIS
--- NOTE | 2021-08-18 18:34 | NUR ---
MS RN CLOSING NOTE PATIENT IN BED, AWAKE RESTING COMFORTABLY. A/O X4. ON RA, BREATHING EVENLY AND UNLABORED. NO SOB AND NO S/S OF DISTRESS NOTED. IV ACCESS ON RFA #22 1/2 NS + 50 MEQ NA BICARB RUNNING AT 100 ML/HR. R FEMORAL HD CATH INTACT AND PATENT. BEDSIDE COMMODE NEAR THE PATIENT. SAFETY PRECAUTIONS IN PLACE: BED IN LOWEST AND LOCKED POSITION, SIDERAILS UP X 2, CALL LIGHT WITHIN REACH. WILL ENDORSE TO TROLLEY COACH DRIVER NURSE FOR ANNA.
--- NOTE | 2021-08-18 19:20 | NUR ---
MS RN OPENING NOTES: RECEIVED PATIENT IN BED, AWAKE, A/O X4. NO S/S OF DISTRESS NOTED. NO COMPLAIN OF PAIN. HD GOING. CALL LIGHT WITHIN REACH. BED IN LOWEST AND LOCKED POSITION.
[2021-08-18 20:00] VITALS: BP 163/88
[2021-08-18] MEDS: MIRTAZAPINE 15 MG TABLET PO SCH (22:26)
[2021-08-18] MEDS: ATORVASTATIN 40 MG TABLET PO SCH (22:26)
[2021-08-18] MEDS: TEMAZEPAM 15 MG CAPSULE PO SCH (22:27)
--- NOTE | 2021-08-19 05:24 | NUR ---
IV PULLED OUT BY THE PATIENT.
[2021-08-19 06:31] LABS: BASOPHILS % (AUTO) 0.1 % (0.0-2.0); EOSINOPHILS % (AUTO) 5.5 % (0.0-6.0); HEMATOCRIT 34 % (39-51); HEMOGLOBIN 11.9 g/dL (13.5-17.5); LYMPHOCYTES # (AUTO) 0.8 K/uL (0.8-4.8); LYMPHOCYTES % (AUTO) 15.6 % (20.0-44.0); MEAN CORPUSCULAR HGB CONC 35 g/dl (31.0-36.0); MEAN CORPUSCULAR VOLUME 90 fL (80-96); MONOCYTES # (AUTO) 0.4 K/uL (0.1-1.30); MONOCYTES % (AUTO) 8.3 % (2.0-12.0); NEUTROPHILS # (AUTO) 3.4 K/uL (1.8-8.9); NEUTROPHILS % (AUTO) 70.5 % (43.0-81.0); PLATELET COUNT (AUTO) 67 K/uL (150-450); WHITE BLOOD COUNT (AUTO) 4.8 K/uL (4.3-11.0)
--- NOTE | 2021-08-19 07:30 | NUR ---
RN NOTES PATIENT IN BED RESTING, NO SIGNS OF ACUTE DISTRESS NOTED. ON ROOM AIR, NO SOB NOTED. SL ON RH #24G INTACT, WITH 1/2 NS + 50 MEQ NA BICARBONATE @100ML/HR ONGOING. PATIENT AMBULATORY, SAFETY MEASURES IN PLACE.
[2021-08-19 07:35] LABS: CALCIUM, SERUM 7.9 mg/dL (8.5-10.1); CARBON DIOXIDE 24 mmol/L (21-32); CHLORIDE 103 mmol/L (98-107); GLUCOSE 83 mg/dL (74-106); POTASSIUM 3.9 mmol/L (3.5-5.1); SODIUM SERUM 138 mmol/L (136-145); UREA NITROGEN, BLOOD 56 mg/dL (7-18)
[2021-08-19 07:47] LABS: CREATININE 7.9 mg/dL (0.6-1.3)
[2021-08-19 08:00] VITALS: BP 142/70
[2021-08-19] MEDS: ASPIRIN 81 MG TAB.CHEW PO SCH (09:18)
[2021-08-19] MEDS: ACIDOPHILUS/BULGARICUS 1 EACH TAB.CHEW PO SCH ×3 (09:18→16:33)
[2021-08-19] MEDS: AMLODIPINE BESYLATE 5 MG TABLET PO SCH (09:19)
[2021-08-19] MEDS: Z GUARD REMEDY 2 OZ OINT TP SCH (09:57)
--- NOTE | 2021-08-19 11:00 | NUR ---
RN NOTES PATIENT PICKED UP BY RADIOLOGY FOR BONE SURVEY PROCEDURE VIA WHEELCHAIR, ACCOMPANIED BY 2 RAD TECHS.
[2021-08-19 12:06] LABS: *ANA ANTI-CENTROMERE B AB <0.2 AI (0.0-0.9); *ANA ANTI-DNA(DS) AB, QN 1 IU/mL (0-9); *ANA ANTI-JO-1 <0.2 AI (0.0-0.9); *ANA ANTICHROMATIN ANTIBODY <0.2 AI (0.0-0.9); *ANA RNP ANTIBODIES <0.2 AI (0.0-0.9); *ANA SJOGREN'S ANTI-SS-A <0.2 AI (0.0-0.9); *ANA SJOGREN'S ANTI-SS-B <0.2 AI (0.0-0.9); *ANAANTI-SCLERODERMA-70 AB <0.2 AI (0.0-0.9); *ANASMITH AB <0.2 AI (0.0-0.9)
[2021-08-19] MEDS: HYDROCODONE/APAP 10/325MG TABLET PO PRN (12:31)
--- NOTE | 2021-08-19 13:23 | NUR ---
RN NOTES PATIENT SEEN BY MAIN CORRALES, ANNELIESE, AND DR. ANGUIANO TODAY.
[2021-08-19] MEDS: DIAZEPAM 5 MG TABLET PO PRN (13:26)
[2021-08-19] MEDS ORDERED: LIDOCAINE 1% INJ 50 ML MDV IJ ONE (13:30)
--- NOTE | 2021-08-19 13:40 | NUR ---
RN NOTES PATIENT SIGNED CONSENT FORM FOR BONE MARROW BIOPSY PROCEDURE AND PLACED IN CHART. PER PATIENT, HE WOULD LIKE THE PROCEDURE TO BE DONE TOMORROW. DR. ANGUIANO IN THE UNIT AND MADE AWARE, AGREED W/ SCHEDULE.
[2021-08-19] MEDS: METHIMAZOLE (5MG) 5 MG TABLET PO SCH ×2 (14:45→21:00)
--- NOTE | 2021-08-19 15:05 | NUR ---
RN NOTES SPOKE W/ MAIN CORRALES NP, REGARDING PATIENT'S BICARB IVF. PER NNPS, OK TO HOLD OFF ON THE FLUIDS FOR NOW.
[2021-08-19 16:00] VITALS: BP 198/91
[2021-08-19] MEDS: Sodium Bicarbonate 100 MEQ in IV 1/2NS 1000 ML 1,000 ML IV PRN (16:34)
--- NOTE | 2021-08-19 18:25 | NUR ---
RN NOTES DR. SAN IN THE UNIT TO SEE THE PATIENT AND MADE AWARE OF PLAN OF CARE.
--- NOTE | 2021-08-19 18:56 | NUR ---
RN NOTES PATIENT IN BED AWAKE, A/O X4. SON AT BEDSIDE. NO SIGNS OF ACUTE DISTRESS NOTED. C/O PAIN ON RIGHT RIB AREA, BUT TOLERABLE. ON ROOM AIR, SPO2 96%. WITH SL ON RIGHT HAND #24G, INTACT. IVF ON HOLD PER DR. CORRALES. HAD HD TODAY WITH NO UF, TOLERATED PROCEDURE WELL. ALL DUE MEDS GIVEN, TOLERATED WELL. NEEDS ATTENDED. CALL LIGHT PLACED WITHIN ASY REACH, BED ON ITS LOWEST POSITION, BREAKS ON, BSR UP. CONTINUE WITH POC.
--- NOTE | 2021-08-19 19:52 | NUR ---
MS RN OPENING NOTES RECEIVED PATIENT IN BED, AWAKE. AOx4. ABLE TO MAKE NEEDS KNOWN. ON ROOM AIR AND TOLERATING WELL. NO SOB NOTED. NO S/SX OF RESPIRATORY DISTRESS. IV ACCESS IN R HAND #24. IV FLUIDS CURRENTLY BEING HELD. IV IS INTACT, PATENT AND FLUSHING WELL. SAFETY PRECAUTIONS IN PLACE: BED IN LOWEST, LOCKED POSITION, SIDE RAILS UP X 2, BRAKES ON. CALL LIGHT AND TABLE WITHIN REACH. WILL CONTINUE TO MONITOR.
[2021-08-19 20:20] VITALS: BP 151/94
[2021-08-19] MEDS: TEMAZEPAM 15 MG CAPSULE PO SCH (21:19)
[2021-08-19] MEDS: MIRTAZAPINE 15 MG TABLET PO SCH (21:19)
[2021-08-19] MEDS: ATORVASTATIN 40 MG TABLET PO SCH (21:20)
[2021-08-20] MEDS: METHIMAZOLE (5MG) 5 MG TABLET PO SCH ×3 (05:29→20:10)
--- NOTE | 2021-08-20 05:56 | NUR ---
PT REMOVED IV. ATTEMPTED TO PLACE NEW IV BUT PT BECAME ANGRY AND REFUSED. WILL ATTEMPT AGAIN AT A LATER TIME.
--- NOTE | 2021-08-20 06:57 | NUR ---
MS RN CLOSING NOTES PATIENT IN BED, AWAKE. AOx3-4. ABLE TO MAKE NEEDS KNOWN. ON ROOM AIR AND TOLERATING WELL. NO SOB NOTED. NO S/SX OF RESPIRATORY DISTRESS. IV ACCESS IN R HAND #24. IV FLUIDS CURRENTLY BEING HELD. IV IS INTACT, PATENT AND FLUSHING WELL. ALL NEEDS MET. PT KEPT CLEAN AND DRY. SAFETY PRECAUTIONS IN PLACE: BED IN LOWEST, LOCKED POSITION, SIDE RAILS UP X 2, BRAKES ON. CALL LIGHT AND TABLE WITHIN REACH. WILL ENDORSE TO ONCOMING SHIFT.
[2021-08-20] MEDS: HYDROCODONE/APAP 10/325MG TABLET PO PRN ×3 (07:30→17:59)
--- NOTE | 2021-08-20 07:55 | NUR ---
RN NOTES PATIENT REQUESTED PAIN MEDICATION FOR RIGHT RIB PAIN; ADMINISTERED INDICATED. PER PATIENT HE WANTS TO REST IN BED AND WOULD LIKE THE LEFT SIDE RAIL TO BE DOWN SO HIS HEAD WILL BE COMFORTABLE WHEN HE LIES ON HIS SIDE.
[2021-08-20 08:00] VITALS: BP 149/81
--- NOTE | 2021-08-20 08:00 | NUR ---
RN NOTES RECEIVED PATIENT IN BED, AWAKE. A/Ox3-4. ABLE TO MAKE NEEDS KNOWN. ON ROOM AIR AND TOLERATING WELL. NO SOB NOTED. NO S/SX OF RESPIRATORY DISTRESS. SAFETY PRECAUTIONS IN PLACE: BED IN LOWEST, LOCKED POSITION, SIDE RAILS UP X 2, BRAKES ON. CALL LIGHT AND TABLE WITHIN REACH. WILL CONTINUE TO MONITOR.
[2021-08-20] MEDS: Z GUARD REMEDY 2 OZ OINT TP SCH (08:21)
[2021-08-20] MEDS: AMLODIPINE BESYLATE 5 MG TABLET PO SCH (09:08)
[2021-08-20] MEDS: ACIDOPHILUS/BULGARICUS 1 EACH TAB.CHEW PO SCH ×3 (09:08→17:51)
[2021-08-20] MEDS: ASPIRIN 81 MG TAB.CHEW PO SCH (09:08)
--- NOTE | 2021-08-20 11:02 | NUR ---
RN NOTES PATIENT ASSISTED W/ REPOSITIONING IN BED.
[2021-08-20 11:10] LABS: BASOPHILS % (AUTO) 0.1 % (0.0-2.0); EOSINOPHILS % (AUTO) 3.1 % (0.0-6.0); HEMATOCRIT 34 % (39-51); HEMOGLOBIN 11.8 g/dL (13.5-17.5); LYMPHOCYTES # (AUTO) 0.9 K/uL (0.8-4.8); LYMPHOCYTES % (AUTO) 14.6 % (20.0-44.0); MEAN CORPUSCULAR HGB CONC 35 g/dl (31.0-36.0); MEAN CORPUSCULAR VOLUME 90 fL (80-96); MONOCYTES # (AUTO) 0.4 K/uL (0.1-1.30); MONOCYTES % (AUTO) 6.5 % (2.0-12.0); NEUTROPHILS # (AUTO) 4.7 K/uL (1.8-8.9); NEUTROPHILS % (AUTO) 75.7 % (43.0-81.0); PLATELET COUNT (AUTO) 90 K/uL (150-450); RED BLOOD CELL COUNT(AUTO) 3.75 MIL/uL (4.5-6.0); WHITE BLOOD COUNT (AUTO) 6.2 K/uL (4.3-11.0)
[2021-08-20 11:30] LABS: CALCIUM, SERUM 7.8 mg/dL (8.5-10.1); CARBON DIOXIDE 24 mmol/L (21-32); CHLORIDE 104 mmol/L (98-107); CREATININE 6.7 mg/dL (0.6-1.3); GLUCOSE 87 mg/dL (74-106); POTASSIUM 4.2 mmol/L (3.5-5.1); SODIUM SERUM 138 mmol/L (136-145); UREA NITROGEN, BLOOD 43 mg/dL (7-18)
--- NOTE | 2021-08-20 12:05 | NUR ---
RN NOTES PATIENT SEEN BY MAIN CORRALES NP, AND ANITRA ONCO RESEARCH ANTHROPOLOGIST, INFORMED ABOUT PLAN OF CARE.
[2021-08-20 13:53] LABS: EOSINOPHILS % (MANUAL) 4 % (0-4); LYMPHOCYTES % (MANUAL) 14 % (16-48); MONOCYTES % (MANUAL) 6 % (0-11.0); NEUTROPHILS % (MANUAL) 76 (42-76)
[2021-08-20] MEDS: DIAZEPAM 5 MG TABLET PO PRN (14:16)
[2021-08-20 16:00] VITALS: BP 146/78
[2021-08-20] MEDS: Sodium Bicarbonate 100 MEQ in IV 1/2NS 1000 ML 1,000 ML IV PRN (16:24)
--- NOTE | 2021-08-20 18:30 | NUR ---
RN NOTES BONE MARROW BIOPSY DONE BY DR. ANGUIANO, PROCEDURE TOLERATED WELL. SAMPLE SPECIMEN SENT TO LABS. BANDAGE ON AT BIOPSY SITE ON RIGHT POSTERIOR SIDE, MINIMAL BLEEDING NOTED. WILL CONTINUE TO MONITOR PATIENT.
--- NOTE | 2021-08-20 19:00 | NUR ---
RN NOTES PATIENT IN BED, AWAKE A/O X 3-4, VERBALLY RESPONSIVE, NO SIGNS OF ACUTE DISTRESS NOTED. ON ROOM AIR, SPO2 96%, NO SOB NOTED. S/P BONE MARROW BIOPSY, SITE WITHOUT ANY ACTIVE BLEEDING NOTED, BANDAGE IN PLACE. COMFORT AND SAFETY MEASURE PROVIDED. BED PLACED ON ITS LOWEST POSITION, BRAKES ON, BSR UP, TABLE WITHIN EASY REACH. ENDORSED TO NEXT SHIFT.
--- NOTE | 2021-08-20 19:20 | NUR ---
RN NOTE RECEIVED PT IN BED, AWAKE/ALERT, ABLE TO VERBALIZE NEEDS. HE DENIES PAIN AT THIS TIME. DENIES SOB. ON ROOM AIR AND [place] WELL. R-FEMORAL HD CATH IN PLACE/INTACT. PT IN NO ACUTE DISTRESS. SAFETY MEASURES IN PLACE, BED IN LOWEST LOCKED POSITION, S/R UPX2, CALL LIGHT WITHIN REACH. WILL CONT TO MONITOR.
[2021-08-20 20:00] VITALS: BP 148/80
[2021-08-20] MEDS: GABAPENTIN 100 MG CAPSULE PO PRN (20:10)
[2021-08-20 20:21] LABS: BASOPHILS % (AUTO) 0.3 % (0.0-2.0); EOSINOPHILS % (AUTO) 2.9 % (0.0-6.0); HEMATOCRIT 31 % (39-51); LYMPHOCYTES # (AUTO) 0.9 K/uL (0.8-4.8); LYMPHOCYTES % (AUTO) 15.2 % (20.0-44.0); MEAN CORPUSCULAR HGB CONC 35 g/dl (31.0-36.0); MEAN CORPUSCULAR VOLUME 90 fL (80-96); MONOCYTES # (AUTO) 0.5 K/uL (0.1-1.30); MONOCYTES % (AUTO) 8.6 % (2.0-12.0); NEUTROPHILS # (AUTO) 4.4 K/uL (1.8-8.9); PLATELET COUNT (AUTO) 85 K/uL (150-450); RED BLOOD CELL COUNT(AUTO) 3.48 MIL/uL (4.5-6.0); WHITE BLOOD COUNT (AUTO) 6.1 K/uL (4.3-11.0)
--- NOTE | 2021-08-20 20:32 | NUR ---
RN NOTE REINSERTED IV TO L-HAND #20G AND [place] WELL. REINFORCED TEACHING AND REINSTRUCTED TO AVOID PULLING OUT IV SITE. PT VERBALIZED UNDERSTANDING.
[2021-08-20 20:43] LABS: EOSINOPHILS % (MANUAL) 3 % (0-4); LYMPHOCYTES % (MANUAL) 14 % (16-48); MONOCYTES % (MANUAL) 7 % (0-11.0); NEUTROPHILS % (MANUAL) 76 (42-76)
[2021-08-20] MEDS: IV NS 0.9% 1,000 ML IV SCH (20:47)
[2021-08-20] MEDS: MIRTAZAPINE 15 MG TABLET PO SCH (21:08)
[2021-08-20] MEDS: ATORVASTATIN 40 MG TABLET PO SCH (21:08)
[2021-08-20] MEDS: TEMAZEPAM 15 MG CAPSULE PO SCH (21:56)
[2021-08-21] MEDS: IV NS 0.9% 1,000 ML IV SCH ×2 (03:57→12:13)
[2021-08-21] MEDS: METHIMAZOLE (5MG) 5 MG TABLET PO SCH ×3 (05:48→20:18)
--- NOTE | 2021-08-21 06:53 | NUR ---
MS RN CLOSING NOTES PT RESTING IN BED, EASILY AROUSABLE TO STIMULI. ABLE TO MAKE NEEDS KNOWN. PT SLEPT INTERMITTENTLY DURING THE NIGHT. VOIDED PER BSC X2 THIS SHIFT. NO BM. IV SITE ON L-HAND INTACT/PATENT, ONGOING NS @125ML/HR. PT IN NO ACUTE DISTRESS. SAFETY MEASURES IN PLACE, BED IN LOWEST LOCKED POSITION, S/R UPX2, CALL LIGHT WITHIN REACH.
[2021-08-21 07:15] LABS: BASOPHILS % (AUTO) 0.3 % (0.0-2.0); EOSINOPHILS % (AUTO) 3.2 % (0.0-6.0); HEMATOCRIT 30 % (39-51); HEMOGLOBIN 10.3 g/dL (13.5-17.5); LYMPHOCYTES # (AUTO) 0.9 K/uL (0.8-4.8); LYMPHOCYTES % (AUTO) 15.4 % (20.0-44.0); MEAN CORPUSCULAR HGB CONC 35 g/dl (31.0-36.0); MEAN CORPUSCULAR VOLUME 91 fL (80-96); MONOCYTES # (AUTO) 0.4 K/uL (0.1-1.30); MONOCYTES % (AUTO) 7.4 % (2.0-12.0); NEUTROPHILS # (AUTO) 4.5 K/uL (1.8-8.9); NEUTROPHILS % (AUTO) 73.7 % (43.0-81.0); PLATELET COUNT (AUTO) 95 K/uL (150-450); RED BLOOD CELL COUNT(AUTO) 3.29 MIL/uL (4.5-6.0); WHITE BLOOD COUNT (AUTO) 6.1 K/uL (4.3-11.0)
[2021-08-21 07:25] LABS: CARBON DIOXIDE 23 mmol/L (21-32); CHLORIDE 107 mmol/L (98-107); CREATININE 6.9 mg/dL (0.6-1.3); GLUCOSE 81 mg/dL (74-106); POTASSIUM 4.1 mmol/L (3.5-5.1); SODIUM SERUM 139 mmol/L (136-145); UREA NITROGEN, BLOOD 49 mg/dL (7-18)
--- NOTE | 2021-08-21 07:32 | NUR ---
RN OPENING NOTES RECEIVED PT IN BED, AWAKE, A/O X2-3 , ABLE TO VERBALIZE NEEDS. PATIENT WITH PERIODS OF FORGETFULNESS, REALITY RE-ORIENTATION PROVIDED. HE DENIES PAIN OR ANY DISCOMFORT AT THIS TIME. BREATHING EVEN AND UNLABORED. ON ROOM AIR AND [place] WELL. PATIENT WITH R-FEMORAL HD CATH IN PLACE, INTACT. SAFETY MEASURES IN PLACE, BED IN LOWEST LOCKED POSITION, S/R UPX2, CALL LIGHT WITHIN EASY REACH. WILL CONTINUE TO MONITOR PATIENT ACCORDINGLY.
[2021-08-21 08:00] VITALS: BP 156/75
[2021-08-21] MEDS: AMLODIPINE BESYLATE 5 MG TABLET PO SCH (08:55)
[2021-08-21] MEDS: ACIDOPHILUS/BULGARICUS 1 EACH TAB.CHEW PO SCH ×3 (08:55→16:31)
[2021-08-21] MEDS: ASPIRIN 81 MG TAB.CHEW PO SCH (09:00)
[2021-08-21] MEDS: Z GUARD REMEDY 2 OZ OINT TP SCH (09:07)
--- NOTE | 2021-08-21 10:57 | NUR ---
RN MS NOTES PATIENT WAS SEEN BY DR. MEHTA AND VERIFIED WITH MD IF NA BICARB IV NEEDS TO BE CONTINUE, PER MD IV NA BICARBONATE NEEDS TO BE CONTINUED. NOTED AND CARRIED OUT
[2021-08-21] MEDS: Sodium Bicarbonate 100 MEQ in IV 1/2NS 1000 ML 1,000 ML IV PRN ×2 (11:06→21:03)
[2021-08-21] MEDS ORDERED: LIDOCAINE 5% (PATCH) 1 EA PATCH TP SCH (14:30)
[2021-08-21] MEDS: HYDROCODONE/APAP 10/325MG TABLET PO PRN ×2 (14:38→14:59)
--- NOTE | 2021-08-21 15:00 | NUR ---
RN MS NOTES PT C/O PAIN ON HIS RIGHT RIB , 9/10 SCALE. PRN NORCO 10/325 TAB. PO ADMINISTERED AT [id number]. WILL CONTINUE TO MONITOR AND REASSESS PT.
[2021-08-21 16:00] VITALS: BP 132/72
[2021-08-21] MEDS ORDERED: ALBUTEROL SULFATE INH 18 GM HFA.AER.AD IH PRN (16:30)
--- NOTE | 2021-08-21 16:45 | NUR ---
RN MS NOTES CHEST X-RAY RESULT WAS RECEIVED AND WAS RELAYED TO ANNELIESE CORRALES AND SHE ACKNOWLEDGED
--- NOTE | 2021-08-21 17:55 | NUR ---
RN MS NOTES PATIENT WAS SEEN ON BED, ASLEEP AT THIS TIME BUT EASILY AROUSABLE. IN NO APPARENT DISTRESS NOTED, BREATHING EVEN AND UNLABORED. WILL CONTINUE TO MONITOR PATIENT ACCORDINGLY.
--- NOTE | 2021-08-21 18:45 | NUR ---
MS RN CLOSING NOTES PT. IN BED, AWAKE, A/O X2-3 , ABLE TO VERBALIZE NEEDS. PATIENT WITH PERIODS OF FORGETFULNESS, REALITY RE-ORIENTATION PROVIDED. HE DENIES PAIN OR ANY DISCOMFORT AT THIS TIME. IN NO APPARENT DISTRESS NOTED. WITH IV AT LEFT HAND G#20 INFUSING NA BICARB IV AT 100 ML/HR, INFUSING WELL. ON O2 AT 2LPM VIA N.C- TOLERATED WELL. PATIENT WITH R-FEMORAL HD CATH IN PLACE,WITH DRY DRESSING. SAFETY MEASURES IN PLACE, BED IN LOWEST LOCKED POSITION, S/R UPX2, CALL LIGHT WITHIN EASY REACH. WILL ENDORSED ANNA TO GETTERING FILAMENT MACHINE OPERATOR NURSE.
[2021-08-21 20:00] VITALS: BP 167/91
[2021-08-21] MEDS: DIAZEPAM 5 MG TABLET PO PRN (20:18)
[2021-08-21] MEDS: TEMAZEPAM 15 MG CAPSULE PO SCH (22:12)
[2021-08-21] MEDS: ATORVASTATIN 40 MG TABLET PO SCH (22:12)
[2021-08-21] MEDS: MIRTAZAPINE 15 MG TABLET PO SCH (22:12)
[2021-08-21 23:30] VITALS: BP 177/83
[2021-08-21 23:38] VITALS: BP 181/78
[2021-08-22] VITALS: BP 124/72
[2021-08-22] MEDS ORDERED: hydrALAZINE HCL 50 MG TABLET PO PRN (00:30)
[2021-08-22] MEDS: METHIMAZOLE (5MG) 5 MG TABLET PO SCH ×3 (05:06→21:15)
[2021-08-22] MEDS: HYDROCODONE/APAP 10/325MG TABLET PO PRN ×2 (05:24→17:19)
--- NOTE | 2021-08-22 06:05 | NUR ---
ALERT/ORIENTED X4, 2LPM VIA NC, WHEEZING, CHEST PAIN, COMPLAINING OF CHILLS, TEMPERATURE WNL, GIVEN NORCO 10/325 1 TAB, ABLE TO SWALLOW MEDICATION, VOIDING VIA BSC, WITH ASSIST, CONTINUE HOSPITALIZATION, FALL PRECAUTION, SUPPORTIVE CARE, DAILY WEIGHT.
--- NOTE | 2021-08-22 07:20 | NUR ---
MS RN OPENING NOTES RECEIVED PT. IN BED, ASLEEP BUT EASILY AROUSABLE, A/O X 3-4 , ABLE TO VERBALIZE NEEDS. HE DENIES PAIN OR ANY DISCOMFORT AT THIS TIME EXCEPT WHEN GETTING UP. IN NO APPARENT DISTRESS NOTED. WITH IV AT LEFT HAND G#20 INFUSING NA BICARB IV AT 100 ML/HR, INFUSING WELL. ON O2 AT 2LPM VIA N.C- TOLERATED WELL. PATIENT WITH R-FEMORAL HD CATH IN PLACE,WITH DRY DRESSING. SAFETY MEASURES IN PLACE, BED IN LOWEST LOCKED POSITION, S/R UPX2, CALL LIGHT WITHIN EASY REACH. WILL CONTINUE TO MONITOR PATIENT.
[2021-08-22 07:32] LABS: BASOPHILS % (AUTO) 0.3 % (0.0-2.0); EOSINOPHILS % (AUTO) 1.8 % (0.0-6.0); HEMATOCRIT 30 % (39-51); HEMOGLOBIN 10.8 g/dL (13.5-17.5); LYMPHOCYTES # (AUTO) 0.8 K/uL (0.8-4.8); LYMPHOCYTES % (AUTO) 9.9 % (20.0-44.0); MEAN CORPUSCULAR HGB CONC 36 g/dl (31.0-36.0); MEAN CORPUSCULAR VOLUME 90 fL (80-96); MONOCYTES # (AUTO) 0.5 K/uL (0.1-1.30); MONOCYTES % (AUTO) 6.3 % (2.0-12.0); NEUTROPHILS # (AUTO) 6.4 K/uL (1.8-8.9); NEUTROPHILS % (AUTO) 81.7 % (43.0-81.0); PLATELET COUNT (AUTO) 111 K/uL (150-450); RED BLOOD CELL COUNT(AUTO) 3.39 MIL/uL (4.5-6.0); WHITE BLOOD COUNT (AUTO) 7.8 K/uL (4.3-11.0)
[2021-08-22 07:40] LABS: CALCIUM, SERUM 7.8 mg/dL (8.5-10.1); CARBON DIOXIDE 24 mmol/L (21-32); CHLORIDE 106 mmol/L (98-107); CREATININE 5.8 mg/dL (0.6-1.3); GLUCOSE 107 mg/dL (74-106); POTASSIUM 3.7 mmol/L (3.5-5.1); SODIUM SERUM 140 mmol/L (136-145); UREA NITROGEN, BLOOD 54 mg/dL (7-18)
[2021-08-22 08:00] VITALS: BP 161/91
[2021-08-22 08:22] LABS: IRON, SERUM 46 ug/dl (50-175); TOTAL IRON BINDING CAPACITY 126 ug/dl (250-450)
[2021-08-22] MEDS: ASPIRIN 81 MG TAB.CHEW PO SCH (09:00)
[2021-08-22] MEDS: Z GUARD REMEDY 2 OZ OINT TP SCH (09:00)
[2021-08-22] MEDS: ACIDOPHILUS/BULGARICUS 1 EACH TAB.CHEW PO SCH ×3 (09:08→17:19)
[2021-08-22] MEDS: AMLODIPINE BESYLATE 5 MG TABLET PO SCH (09:09)
[2021-08-22] MEDS: LIDOCAINE 5% (PATCH) 1 EA PATCH TP SCH (09:16)
[2021-08-22] MEDS: NITROGLYCERIN 30 GM TUBE TP SCH ×2 (11:18→17:28)
[2021-08-22] MEDS: hydrALAZINE HCL 50 MG TABLET PO SCH ×3 (11:19→17:19)
[2021-08-22] MEDS: DIAZEPAM 5 MG TABLET PO PRN (12:33)
--- NOTE | 2021-08-22 19:00 | NUR ---
MS RN CLOSING NOTES PT. IN BED, ASLEEP BUT EASILY AROUSABLE, A/O X 3-4 , ABLE TO VERBALIZE NEEDS. HE DENIES PAIN OR ANY DISCOMFORT AT THIS TIME EXCEPT WHEN GETTING UP. IN NO APPARENT DISTRESS NOTED. WITH IV AT LEFT HAND G#20, IV HYDRATION ON HOLD PER DR. CORRALES, UNTIL FURTHER ORDER. ON O2 AT 2LPM VIA N.C- TOLERATED WELL. PATIENT WITH R-FEMORAL HD CATH IN PLACE,WITH DRY DRESSING. SAFETY MEASURES IN PLACE, BED IN LOWEST LOCKED POSITION, S/R UPX2, CALL LIGHT WITHIN EASY REACH. WILL CONTINUE TO MONITOR PATIENT.
--- NOTE | 2021-08-22 20:00 | NUR ---
RN NOTES RECEIVED IN BED, ALERT/ORIENTED X4, 2LPM VIA NC, WHEEZING ON EXERTION, COMPLAINING OF CHEST WALL PAIN, UNSTEADY GAIT, EDUCATED PATIENT TO CALL FOR ASSISTANCE WHEN USING BSC OR TOILET. ANXIOUS AT TIMES, REDIRECTABLE, KEPT SAFE, CALL LIGHT WITHIN REACH.
[2021-08-22 20:34] VITALS: BP 124/72
[2021-08-22] MEDS: MIRTAZAPINE 15 MG TABLET PO SCH (21:15)
[2021-08-22] MEDS: TEMAZEPAM 15 MG CAPSULE PO SCH (21:15)
[2021-08-22] MEDS: ATORVASTATIN 40 MG TABLET PO SCH (21:15)
[2021-08-23] MEDS: METHIMAZOLE (5MG) 5 MG TABLET PO SCH ×4 (04:05→21:04)
--- NOTE | 2021-08-23 07:00 | NUR ---
RN NOTES ALERT/ORIENTED X4, 2LPM VIA NC, WHEEZING ON EXERTION, ANXIOUS, AFEBRILE, VS STABLE, WITH EPISODES OF CHILLS, UNSTEADY GAIT, BONE MARROW BIOPSY PENDING, FALL PRECAUTION
--- NOTE | 2021-08-23 07:33 | NUR ---
WOUND CARE CONSULT: PT SEEN FOR RT KNEE DRY ABRASIONS, PRESENT ON ADMISSION. NO FLUCTUANCE, ERYTHEMA, DRAINAGE OR TENDERNESS NOTED. PT IS ABLE TO TURN AND REPOSITION IN BED. WILL SEE PRN.
[2021-08-23] MEDS: HYDROCODONE/APAP 10/325MG TABLET PO PRN ×2 (08:18→18:04)
[2021-08-23 08:29] LABS: BASOPHILS % (AUTO) 0.3 % (0.0-2.0); EOSINOPHILS % (AUTO) 2.3 % (0.0-6.0); HEMATOCRIT 31 % (39-51); HEMOGLOBIN 10.6 g/dL (13.5-17.5); LYMPHOCYTES # (AUTO) 1.1 K/uL (0.8-4.8); LYMPHOCYTES % (AUTO) 11.7 % (20.0-44.0); MEAN CORPUSCULAR HGB CONC 35 g/dl (31.0-36.0); MEAN CORPUSCULAR VOLUME 91 fL (80-96); MONOCYTES # (AUTO) 0.6 K/uL (0.1-1.30); MONOCYTES % (AUTO) 7.1 % (2.0-12.0); NEUTROPHILS # (AUTO) 7.1 K/uL (1.8-8.9); NEUTROPHILS % (AUTO) 78.6 % (43.0-81.0); PLATELET COUNT (AUTO) 143 K/uL (150-450); RED BLOOD CELL COUNT(AUTO) 3.39 MIL/uL (4.5-6.0)
--- NOTE | 2021-08-23 08:33 | NUR ---
RN OPENING NOTE PT AWAKE IN BED RESTING. ON 2L NC WITH NO RESPIRATORY DISTRESS PRESENT. A/O X4 AND OCCITAN SPEAKING. NO COMPLAINT OF PAIN OR NAUSEA. AMBULATORY WITH STANDBY ASSIST. BED ALARM ON. NO RFID TECHNICIAN PRESENT. BLE EDEMA PRESENT. SKIN IS INTACT. IV PRESENT ON L HAND 20G SALINE LOCKED. FLUSHES WELL. HD CATH PRESENT ON R FEMORAL. LABS AND ORDERS REVIEWED. SAFETY MEASURES IN PLACE. SIDE RAILS RAISED. BED LOWERED. CALL LIGHT WITHIN REACH. WILL CONTINUE TO MONITOR.
[2021-08-23 08:35] LABS: CALCIUM, SERUM 7.5 mg/dL (8.5-10.1); CARBON DIOXIDE 27 mmol/L (21-32); CHLORIDE 107 mmol/L (98-107); CREATININE 4.7 mg/dL (0.6-1.3); GLUCOSE 95 mg/dL (74-106); POTASSIUM 3.5 mmol/L (3.5-5.1); SODIUM SERUM 143 mmol/L (136-145); UREA NITROGEN, BLOOD 51 mg/dL (7-18)
[2021-08-23] MEDS: ASPIRIN 81 MG TAB.CHEW PO SCH (09:00)
[2021-08-23] MEDS: NITROGLYCERIN 30 GM TUBE TP SCH (09:00)
[2021-08-23] MEDS: Z GUARD REMEDY 2 OZ OINT TP SCH (09:00)
[2021-08-23 09:03] VITALS: BP 157/71
[2021-08-23] MEDS: AMLODIPINE BESYLATE 5 MG TABLET PO SCH (09:28)
[2021-08-23] MEDS: ACIDOPHILUS/BULGARICUS 1 EACH TAB.CHEW PO SCH ×3 (09:28→18:05)
[2021-08-23] MEDS: LIDOCAINE 5% (PATCH) 1 EA PATCH TP SCH (09:29)
[2021-08-23] MEDS: hydrALAZINE HCL 50 MG TABLET PO SCH ×3 (09:29→18:05)
[2021-08-23] MEDS: DIAZEPAM 5 MG TABLET PO PRN (10:16)
--- NOTE | 2021-08-23 12:46 | NUR ---
RN NOTE PT GAVE PAPERS WITH NOTES THAT HE DOESNT TAKE TEMAZEPAM HS ANYMORE. PT INSTEAD TAKES GABAPENTIN 200 MG, MIRTAZAPINE 15 MG, VALIUM 5 MG AT BEDTIME. PRESCRIBER IS DR ABBASI . NOTIFIED KE AND OKAYED BY HER TO START. WILL CONTINUE TO MONITOR.
[2021-08-23 16:00] VITALS: BP 155/94
--- NOTE | 2021-08-23 17:49 | NUR ---
RN CLOSING NOTE PT AWAKE IN BED RESTING. ON 2L NC WITH NO RESPIRATORY DISTRESS PRESENT. A/O X4 AND THAI SPEAKING. NO COMPLAINT OF PAIN OR NAUSEA. AMBULATORY WITH STANDBY ASSIST. NO AGRICULTURAL COMMODITIES INSPECTOR PRESENT. BLE EDEMA PRESENT. SKIN IS INTACT. IV PRESENT ON L HAND 20G AND FLUSHES WELL. NS RUNNING AT 125 ML/HR. HD CATH PRESENT ON R FEMORAL. LABS AND ORDERS REVIEWED. SAFETY MEASURES IN PLACE. SIDE RAILS RAISED. BED LOWERED. CALL LIGHT WITHIN REACH. WILL GIVE REPORT TO NIGHT NURSE FOR ANNA.
[2021-08-23] MEDS ORDERED: ONDANSETRON HCL/PF 4 MG/2 ML VIAL IV PRN (18:00)
--- NOTE | 2021-08-23 18:11 | NUR ---
RN NOTE CALLED BY SON WITH NOTE THAT GIVING PAIN PILLS AFTER FOOD/PHYSICAL THERAPY WILL INCENTIVIZE PT TO PARTICIPATE IN CARE. WILL ENDORSE TO NIGHT NURSE. WILL CONTINUE TO MONITOR.
[2021-08-23 20:45] VITALS: BP 139/67
[2021-08-23] MEDS: GABAPENTIN 100 MG CAPSULE PO SCH (21:04)
[2021-08-23] MEDS: ATORVASTATIN 40 MG TABLET PO SCH (21:04)
[2021-08-23] MEDS: MIRTAZAPINE 15 MG TABLET PO SCH (21:06)
[2021-08-23] MEDS ORDERED: DIAZEPAM 5 MG TABLET PO SCH (22:00)
[2021-08-23] MEDS ORDERED: MIRTAZAPINE 15 MG TABLET PO SCH (22:00)
[2021-08-24 00:08] VITALS: BP 110/65
[2021-08-24 04:08] VITALS: BP 118/70
[2021-08-24] MEDS: METHIMAZOLE (5MG) 5 MG TABLET PO SCH ×4 (05:55→21:27)
[2021-08-24] MEDS: IV NS 0.9% 1,000 ML IV PRN (06:01)
[2021-08-24 07:22] LABS: BASOPHILS % (AUTO) 0.3 % (0.0-2.0); EOSINOPHILS % (AUTO) 1.5 % (0.0-6.0); HEMATOCRIT 31 % (39-51); HEMOGLOBIN 10.8 g/dL (13.5-17.5); LYMPHOCYTES # (AUTO) 1.2 K/uL (0.8-4.8); LYMPHOCYTES % (AUTO) 11.7 % (20.0-44.0); MEAN CORPUSCULAR HGB CONC 35 g/dl (31.0-36.0); MEAN CORPUSCULAR VOLUME 90 fL (80-96); MONOCYTES # (AUTO) 0.6 K/uL (0.1-1.30); MONOCYTES % (AUTO) 5.4 % (2.0-12.0); NEUTROPHILS # (AUTO) 8.4 K/uL (1.8-8.9); NEUTROPHILS % (AUTO) 81.1 % (43.0-81.0); PLATELET COUNT (AUTO) 181 K/uL (150-450); RED BLOOD CELL COUNT(AUTO) 3.39 MIL/uL (4.5-6.0); WHITE BLOOD COUNT (AUTO) 10.3 K/uL (4.3-11.0)
[2021-08-24 07:43] LABS: CALCIUM, SERUM 7.6 mg/dL (8.5-10.1); CARBON DIOXIDE 23 mmol/L (21-32); CHLORIDE 108 mmol/L (98-107); CREATININE 3.9 mg/dL (0.6-1.3); GLUCOSE 95 mg/dL (74-106); POTASSIUM 3.5 mmol/L (3.5-5.1); SODIUM SERUM 142 mmol/L (136-145); UREA NITROGEN, BLOOD 50 mg/dL (7-18)
--- NOTE | 2021-08-24 07:44 | NUR ---
RN OPENING NOTES Patient seen comfortably lying in bed, no apparent distress noted, respirations even and unlabored, no SOB, denies any pain or discomfort at this time. Call light left within reach, safety precautions in place, brakes locked, side rails up X 2, will monitor closely for any changes.
[2021-08-24] MEDS: ACIDOPHILUS/BULGARICUS 1 EACH TAB.CHEW PO SCH ×3 (09:00→17:00)
[2021-08-24] MEDS: AMLODIPINE BESYLATE 5 MG TABLET PO SCH (09:00)
[2021-08-24] MEDS: Z GUARD REMEDY 2 OZ OINT TP SCH (09:00)
[2021-08-24] MEDS: hydrALAZINE HCL 50 MG TABLET PO SCH ×3 (09:00→17:00)
[2021-08-24] MEDS: ASPIRIN 81 MG TAB.CHEW PO SCH (09:00)
[2021-08-24] MEDS: LIDOCAINE 5% (PATCH) 1 EA PATCH TP SCH (09:30)
[2021-08-24 09:36] VITALS: BP 134/73
[2021-08-24] MEDS ORDERED: NEPRO VAN 237 ML CAN PO PRN (14:30)
[2021-08-24 16:00] VITALS: BP 177/97
[2021-08-24] MEDS: DIAZEPAM 5 MG TABLET PO SCH ×2 (16:16→21:26)
--- NOTE | 2021-08-24 18:25 | NUR ---
Patient lying in bed, AO X 4, able to make needs known, can follow simple commands. Breathing even and unlabored, no SOB, no dizziness, no palpitations, denies any pain or discomfort at this time, remained afebrile, no apparent distress noted at this time. All due medications given per MD order, tolerating well. Patient preferred not to take his medications today, he said that he wants to rest from taking them, explained risks and benefits thrice, still refused, respected patients wishes, MD made aware. Patient only took his routine Valium and refused to take the rest of his medications. Call light left within reach, all needs attended, kept clean and dry, safety precautions in place, brakes locked, side rails up X 2, will endorse to next shift for continuity of care.
--- NOTE | 2021-08-24 19:50 | NUR ---
MS RN OPENING NOTES RECEIVED PATIENT IN BED, WITH EYES OPEN. AOx4. ABLE TO MAKE NEEDS KNOWN. ON RA AND TOLERATING WELL. NO SOB NOTED. NO S/SX OF RESPIRATORY DISTRESS NOTED. IV ACCESS IN L HAND #20G WITH NO FLUIDS RUNNING BECAUSE PATIENT REFUSED. R FEMORAL HD CATHETER. IV IS INTACT, PATENT AND FLUSHING WELL. NO COMPLAINTS OF PAIN AT THIS TIME. SAFETY PRECAUTIONS IN PLACE: BED IN LOWEST, LOCKED POSITION, SIDERAILS UPx2, AND BRAKES ON. TABLE AND CALL LIGHT WITHIN REACH. WILL CONTINUE TO MONITOR.
[2021-08-24 20:00] VITALS: BP 138/86
[2021-08-24] MEDS: GABAPENTIN 100 MG CAPSULE PO SCH (21:25)
[2021-08-24] MEDS: ATORVASTATIN 40 MG TABLET PO SCH (21:26)
[2021-08-24] MEDS: MIRTAZAPINE 15 MG TABLET PO SCH (21:27)
--- NOTE | 2021-08-24 21:32 | NUR ---
ATTEMPTED TO ADMINISTER METHIMAZOLE BUT PATIENT REFUSED. STATING HE "NEEDED TO SPEAK TO HIS SURGEON BECAUSE HE DOESN'T NORMALLY TAKE IT AT NIGHT". OPENED PILL PACKAGE. DISCARDED PILL.
[2021-08-25] MEDS: METHIMAZOLE (5MG) 5 MG TABLET PO SCH ×3 (05:28→20:05)
[2021-08-25 06:36] LABS: BASOPHILS % (AUTO) 0.2 % (0.0-2.0); EOSINOPHILS % (AUTO) 2.4 % (0.0-6.0); HEMATOCRIT 30 % (39-51); HEMOGLOBIN 10.4 g/dL (13.5-17.5); LYMPHOCYTES # (AUTO) 1.1 K/uL (0.8-4.8); LYMPHOCYTES % (AUTO) 12.8 % (20.0-44.0); MEAN CORPUSCULAR HGB CONC 34 g/dl (31.0-36.0); MEAN CORPUSCULAR VOLUME 91 fL (80-96); MONOCYTES # (AUTO) 0.6 K/uL (0.1-1.30); MONOCYTES % (AUTO) 6.8 % (2.0-12.0); NEUTROPHILS # (AUTO) 6.7 K/uL (1.8-8.9); NEUTROPHILS % (AUTO) 77.8 % (43.0-81.0); PLATELET COUNT (AUTO) 190 K/uL (150-450); RED BLOOD CELL COUNT(AUTO) 3.32 MIL/uL (4.5-6.0); WHITE BLOOD COUNT (AUTO) 8.6 K/uL (4.3-11.0)
--- NOTE | 2021-08-25 06:47 | NUR ---
MS RN CLOSING NOTES PATIENT IN BED, ASLEEP, AWAKENS TO VERBAL STIMULI. AOx4. ABLE TO MAKE NEEDS KNOWN. ON RA AND TOLERATING WELL. NO SOB NOTED. NO S/SX OF RESPIRATORY DISTRESS NOTED. IV ACCESS IN L HAND #20G WITH NO FLUIDS RUNNING BECAUSE PATIENT REFUSED. R FEMORAL HD CATHETER. IV IS INTACT, PATENT AND FLUSHING WELL. NO COMPLAINTS OF PAIN THROUGHOUT SHIFT. ALL NEEDS MET. PT KEPT CLEAN AND DRY. SAFETY PRECAUTIONS IN PLACE: BED IN LOWEST, LOCKED POSITION, SIDERAILS UPx2, AND BRAKES ON. TABLE AND CALL LIGHT WITHIN REACH. WILL ENDORSE TO ONCOMING SHIFT FOR ANNA.
[2021-08-25 07:04] LABS: CALCIUM, SERUM 7.7 mg/dL (8.5-10.1); CARBON DIOXIDE 27 mmol/L (21-32); CHLORIDE 110 mmol/L (98-107); GLUCOSE 97 mg/dL (74-106); MAGNESIUM 1.3 mg/dL (1.8-2.4); PHOSPHORUS 3.5 mg/dL (2.5-4.9); POTASSIUM 3.2 mmol/L (3.5-5.1); SODIUM SERUM 144 mmol/L (136-145); UREA NITROGEN, BLOOD 45 mg/dL (7-18)
--- NOTE | 2021-08-25 07:45 | NUR ---
RN-NOTES RECEIVED PATIENT SLEEPING IN BED WITH BREATHING EVEN AND NONLABORED EASILY AROUSED. NOTED IV ACCESS IN L HAND #20G WITH NO FLUIDS RUNNING BECAUSE PATIENT REFUSED. R FEMORAL HD CATHETER. IV IS INTACT, PATENT AND FLUSHING WELL. NO COMPLAINTS OF PAIN AT THIS TIME . ALL NEEDS ATTENDED . PT KEPT CLEAN AND DRY. SAFETY PRECAUTIONS IN PLACE: BED IN LOWEST, LOCKED POSITION, SIDE RAILS UPx2, AND BRAKES ON. TABLE AND CALL LIGHT WITHIN REACH.
[2021-08-25] MEDS: DIAZEPAM 5 MG TABLET PO SCH ×2 (08:49→20:05)
[2021-08-25] MEDS: ACIDOPHILUS/BULGARICUS 1 EACH TAB.CHEW PO SCH ×3 (08:49→17:31)
[2021-08-25] MEDS: ASPIRIN 81 MG TAB.CHEW PO SCH (08:49)
[2021-08-25] MEDS: AMLODIPINE BESYLATE 5 MG TABLET PO SCH (08:49)
[2021-08-25] MEDS: hydrALAZINE HCL 50 MG TABLET PO SCH ×3 (08:50→17:32)
[2021-08-25] MEDS: Z GUARD REMEDY 2 OZ OINT TP SCH (09:25)
[2021-08-25] MEDS: LIDOCAINE 5% (PATCH) 1 EA PATCH TP SCH (09:30)
[2021-08-25 10:39] VITALS: BP 162/86
--- NOTE | 2021-08-25 10:59 | NUR ---
RN-NOTES RECEIVED A CALL FROM THE PHARMACIES ([facility]) THAT THEY CAN NOT REPLACE THE POTASSIUM AND MAGNESIUM DUE TO PATIENT WAS A DIALYSIS PATIENT. DR. ARTURO SAN MADE AWARE OF PATIENT POTASSIUM AND MAGNESIUM LEVEL. STILL AWAITING FOR ORDERS. SOCIAL MEDIA MARKETING ANALYST ALSO MADE CHARGE NURSE AWARE.
[2021-08-25] MEDS ORDERED: POTASSIUM CHLORIDE 20 MEQ TAB.PRT.SR PO ONE (11:00)
[2021-08-25] MEDS: Magnesium 1GM/D5W 100ML PREMIX 100 ML IV SCH ×2 (11:49→12:56)
--- NOTE | 2021-08-25 14:17 | NUR ---
RN-NOTES DR. SAN SEEN THE PATIENT, IN THE UNIT AT THIS TIME.
[2021-08-25 16:49] VITALS: BP 139/75
[2021-08-25] MEDS: IV NS 0.9% 1,000 ML IV PRN (17:19)
--- NOTE | 2021-08-25 18:34 | NUR ---
RN-NOTES PATIENT SLEEPING IN BED WITH BREATHING EVEN AND NONLABORED EASILY AROUSED. IV ACCESS IN L HAND #20G WITH ONGOING NS FLUIDS @125 ML/HR. R FEMORAL HD CATHETER. IV IS INTACT, PATENT AND FLUSHING WELL. NO COMPLAINTS OF PAIN AT THIS TIME . ALL NEEDS ATTENDED AND ANTICIPATED. KEPT CLEAN AND DRY AT ALL TIMES .PATIENT ABLE TO USE COMMODE AT BEDSIDE. SAFETY PRECAUTIONS IN PLACE. BED IN LOWEST, LOCKED POSITION, SIDE RAILS UPx2, AND BRAKES ON. TABLE AND CALL LIGHT WITHIN REACH.WILL ENDORSE TO INCOMING NURSE FOR CONTINUITY OF CARE.
--- NOTE | 2021-08-25 19:20 | NUR ---
RN OPENING NOTES PT AWAKE IN BED, A/OX4, ABLE TO VERBALIZE NEEDS. DENIES ANY PAIN AT THIS TIME. RESPIRATIONS EVEN AND UNLABORED. IV SITE: L-HAND #20G INTACT/PATENT, RUNNING NS @125ML/HR. R-FEMORAL HD CATH IN PLACE/INTACT. PT IN NO ACUTE DISTRESS. SAFETY MEASURES IN PLACE, BED IN LOWEST LOCKED POSITION, S/R UPX2, CALL LIGHT WITHIN REACH. WILL CONT TO MONITOR.
[2021-08-25] MEDS: MIRTAZAPINE 15 MG TABLET PO SCH (21:56)
[2021-08-25] MEDS: GABAPENTIN 100 MG CAPSULE PO SCH (21:59)
[2021-08-25] MEDS: ATORVASTATIN 40 MG TABLET PO SCH (22:00)
[2021-08-26] MEDS: METHIMAZOLE (5MG) 5 MG TABLET PO SCH ×3 (05:00→22:14)
[2021-08-26 06:35] LABS: BASOPHILS % (AUTO) 0.4 % (0.0-2.0); HEMATOCRIT 29 % (39-51); HEMOGLOBIN 10.1 g/dL (13.5-17.5); LYMPHOCYTES % (AUTO) 12.8 % (20.0-44.0); MEAN CORPUSCULAR HGB CONC 35 g/dl (31.0-36.0); MEAN CORPUSCULAR VOLUME 91 fL (80-96); MONOCYTES # (AUTO) 0.6 K/uL (0.1-1.30); MONOCYTES % (AUTO) 7.9 % (2.0-12.0); NEUTROPHILS # (AUTO) 6.1 K/uL (1.8-8.9); NEUTROPHILS % (AUTO) 76.9 % (43.0-81.0); PLATELET COUNT (AUTO) 204 K/uL (150-450); RED BLOOD CELL COUNT(AUTO) 3.16 MIL/uL (4.5-6.0)
--- NOTE | 2021-08-26 06:48 | NUR ---
RN CLOSING NOTES PT RESTING COMFORTABLY IN BED, RESPIRATIONS EVEN AND UNLABORED. PT TOOK OFF O2 @THIS TIME, STATES "I FEEL OK. I DON'T NEED IT RIGHT NOW." O2 SAT 96%. DENIES ANY PAIN AT THIS TIME. PT WENT BACK TO SLEEP. PT AMBULATED TO BR X1 LAST NIGHT WITH SLOW STEADY GAIT AND STANDBY ASSIST PROVIDED; ALSO USED BEDSIDE COMMODE X2 THIS A.M. NO ACUTE EVENTS DURING THE NIGHT. SAFETY MEASURES MAINTAINED. ALL NEEDS ATTENDED TO.
[2021-08-26 06:54] LABS: CALCIUM, SERUM 7.5 mg/dL (8.5-10.1); CARBON DIOXIDE 25 mmol/L (21-32); CHLORIDE 111 mmol/L (98-107); CREATININE 2.4 mg/dL (0.6-1.3); GLUCOSE 98 mg/dL (74-106); MAGNESIUM 1.6 mg/dL (1.8-2.4); PHOSPHORUS 2.9 mg/dL (2.5-4.9); POTASSIUM 3.5 mmol/L (3.5-5.1); SODIUM SERUM 143 mmol/L (136-145); UREA NITROGEN, BLOOD 38 mg/dL (7-18)
--- NOTE | 2021-08-26 07:59 | NUR ---
MS RN OPENING NOTES RECEIVED PATIENT RESTING IN BED. EASY TO AROUSE. A/O X4. STABLE ON ROOM AIR - USES 2L NC PRN. NO SOB NOTED. NO DISTRESS/DISCOMFORT NOTED. IV ACCESS TO LEFT HAND #20 - INTACT AND FLUSHES WELL. R-FEMORAL HD CATH IN PLACE. SAFETY MEASURES IN PLACE. CALL LIGHT WITHIN REACH. WILL CONTINUE TO MONITOR.
[2021-08-26 08:00] VITALS: BP 142/76
[2021-08-26] MEDS ORDERED: Magnesium 1GM/D5W 100ML PREMIX 100 ML IV SCH (09:00)
[2021-08-26] MEDS: ASPIRIN 81 MG TAB.CHEW PO SCH ×2 (09:00→09:35)
[2021-08-26] MEDS: ACIDOPHILUS/BULGARICUS 1 EACH TAB.CHEW PO SCH ×3 (09:27→16:59)
[2021-08-26] MEDS: DIAZEPAM 5 MG TABLET PO SCH ×2 (09:29→22:15)
[2021-08-26] MEDS: LIDOCAINE 5% (PATCH) 1 EA PATCH TP SCH (09:30)
[2021-08-26] MEDS: AMLODIPINE BESYLATE 5 MG TABLET PO SCH (09:36)
[2021-08-26] MEDS: hydrALAZINE HCL 50 MG TABLET PO SCH ×3 (09:36→16:58)
[2021-08-26] MEDS: Z GUARD REMEDY 2 OZ OINT TP SCH (09:37)
[2021-08-26 16:00] VITALS: BP 145/68
[2021-08-26] MEDS: HYDROCODONE/APAP 10/325MG TABLET PO PRN (18:12)
--- NOTE | 2021-08-26 18:43 | NUR ---
MS RN CLOSING NOTE PATIENT CURRENTLY LYING IN BED, AWAKE. A/O X4. STABLE ON ROOM AIR - USES 2L NC PRN. NO SOB NOTED. NO DISTRESS/DISCOMFORT NOTED. IV ACCESS TO LEFT HAND #20 - INTACT AND FLUSHES WELL. R-FEMORAL HD CATH REMOVED BY DR. SAN. SAFETY MEASURES IN PLACE. CALL LIGHT WITHIN REACH. WILL ENDORSE TO CRIMP SETTER NURSE FOR ANNA.
--- NOTE | 2021-08-26 19:10 | NUR ---
MS RN OPENING NOTES: RECEIVED PATIENT IN BED, AWAKE, A/O X4. NO S/S OF DISTRESS NOTED. NO COMPLAIN OF PAIN. CALL LIGHT WITHIN REACH. BED IN LOWEST AND LOCKED POSITION. BED ALARM ON. WITH O2 AT 2L/MIN NASAL CANNULA.
[2021-08-26 20:00] VITALS: BP 134/70
[2021-08-26] MEDS: ATORVASTATIN 40 MG TABLET PO SCH ×2 (22:00→22:15)
[2021-08-26] MEDS: MIRTAZAPINE 15 MG TABLET PO SCH (22:14)
[2021-08-26] MEDS: GABAPENTIN 100 MG CAPSULE PO SCH (22:15)
[2021-08-27] MEDS: METHIMAZOLE (5MG) 5 MG TABLET PO SCH ×2 (06:17→13:41)
[2021-08-27 07:00] LABS: CALCIUM, SERUM 7.8 mg/dL (8.5-10.1); CARBON DIOXIDE 24 mmol/L (21-32); CHLORIDE 111 mmol/L (98-107); CREATININE 2.4 mg/dL (0.6-1.3); GLUCOSE 89 mg/dL (74-106); MAGNESIUM 1.7 mg/dL (1.8-2.4); POTASSIUM 3.5 mmol/L (3.5-5.1); SODIUM SERUM 144 mmol/L (136-145); UREA NITROGEN, BLOOD 32 mg/dL (7-18)
--- NOTE | 2021-08-27 07:50 | NUR ---
MS/RN OPENING NOTES RECEIVED PATIENT IN BED AWAKE ALERT AND ORIENTED X4. PATIENT IS ON 2LPM OF OXYGEN VIA NASAL CANNULA. PATIENT IN NO APPARENT RESPIRATORY DISTRESS NOTED. NO COMPLAINED OF PAIN NOTED AT THIS TIME. IV ACCESS AT LEFT HAND #20G PATENT AND INTACT ON SALINE LOCK. SAFETY PRECAUTIONS WAS IN PLACED. BED IN LOWEST POSITION AND LOCKED. CALL LIGHT WITHIN REACH. WILL CONTINUE TO MONITOR.
[2021-08-27 08:00] VITALS: BP 130/100
[2021-08-27] MEDS: hydrALAZINE HCL 50 MG TABLET PO SCH ×4 (08:40→16:26)
[2021-08-27] MEDS: AMLODIPINE BESYLATE 5 MG TABLET PO SCH (08:41)
[2021-08-27] MEDS: ACIDOPHILUS/BULGARICUS 1 EACH TAB.CHEW PO SCH ×4 (08:41→16:26)
[2021-08-27] MEDS: ASPIRIN 81 MG TAB.CHEW PO SCH ×2 (08:41→08:46)
[2021-08-27] MEDS: LIDOCAINE 5% (PATCH) 1 EA PATCH TP SCH ×2 (08:42→08:43)
[2021-08-27] MEDS: Z GUARD REMEDY 2 OZ OINT TP SCH (08:42)
[2021-08-27] MEDS: DIAZEPAM 5 MG TABLET PO SCH ×2 (08:42→10:18)
[2021-08-27] MEDS: Magnesium 1GM/D5W 100ML PREMIX 100 ML IV SCH ×2 (09:14→12:51)
[2021-08-27 09:30] LABS: THYROID STIMULATING HORMONE 2.74 uIU/mL (0.358-3.74)
[2021-08-27] MEDS ORDERED: ASPI-1169 PO (10:39)
[2021-08-27 13:41] VITALS: BP 129/70
--- NOTE | 2021-08-27 16:47 | NUR ---
MS/RN NOTES- DISCHARGE PATIENT IS ALERT AND ORIENTED X4, ABLE TO MAKE NEEDS KNOWN. PATIENT IS AMBULATORY AND IS ON ON AND OFF OXYGEN VIA NASAL CANNULA AT 2 LPM. PATIENT WAS CLEARED BY DR LATHAM FOR DC TRANSFER TO [facility] FOR REHAB. DISCHARGE INSTRUCTIONS ENDORSED TO TRUONG BARBER AT THE SNF. PATIENT WAS PICKED UP BY EMT FOR TRANSFER.
== END 2021-08-27 16:40 | DRG 682 ==
LOC: ER 16:45 → TELE1 23:14 → MEDSG1 08-15 17:56 → MED 08-16 20:14
PROVIDERS: ADMIT Registered Nurse; ATTEND Hospitalist
PROC: 06HY33Z Insertion of Infusion Device into Lower Vein, Percutaneous Approach (ICD-10-PCS; principal; 2021-08-18)
PROC: 5A1D70Z Performance of Urinary Filtration, Intermittent, Less than 6 Hours Per Day (ICD-10-PCS; 2021-08-18)
PROC: 07DR3ZX Extraction of Iliac Bone Marrow, Percutaneous Approach, Diagnostic (ICD-10-PCS; 2021-08-20)
DX: N17.0 Acute kidney failure with tubular necrosis (principal); J15.9 Unspecified bacterial pneumonia; I21.A1 Myocardial infarction type 2; S22.31XA Fracture of one rib, right side, initial encounter for closed fracture; E44.0 Moderate protein-calorie malnutrition; D61.818 Other pancytopenia; J98.11 Atelectasis; I12.9 Hypertensive chronic kidney disease with stage 1 through stage 4 chronic kidney disease, or unspecified chronic kidney disease; I77.6 Arteritis, unspecified; N18.9 Chronic kidney disease, unspecified; Z20.822 Contact with and (suspected) exposure to COVID-19; D69.59 Other secondary thrombocytopenia; D47.2 Monoclonal gammopathy; E78.5 Hyperlipidemia, unspecified; F43.10 Post-traumatic stress disorder, unspecified; Z87.891 Personal history of nicotine dependence; Z90.2 Acquired absence of lung [part of]; R07.89 Other chest pain; X58.XXXA Exposure to other specified factors, initial encounter; Y93.9 Activity, unspecified; Y92.009 Unspecified place in unspecified non-institutional (private) residence as the place of occurrence of the external cause; R16.1 Splenomegaly, not elsewhere classified; I73.9 Peripheral vascular disease, unspecified; Z68.25 Body mass index [BMI] 25.0-25.9, adult; R19.7 Diarrhea, unspecified; E05.90 Thyrotoxicosis, unspecified without thyrotoxic crisis or storm; Z85.118 Personal history of other malignant neoplasm of bronchus and lung; D75.89 Other specified diseases of blood and blood-forming organs
CPT/HCPCS: 36415; 71045-TC; 71100-TC; 71250-TC; 74018; 76536-TC; 76700-TC; 76770-TC; 77075-TC; 80048-TC; 80053-TC; 80061-TC; 80076-TC; 80202-TC; 81001; 82232; 82378; 82550-TC; 82553; 82570-TC; 82728-TC; 82784; 83010; 83520; 83540-TC; 83605-TC; 83615-TC; 83735-TC; 83970; 84100-TC; 84155; 84155-TC; 84165; 84300-TC; 84439-TC; 84443-TC; 84484-TC; 85025-TC; 85045-TC; 85378-TC; 85610-TC; 85652-TC; 85730-TC; 86140-TC; 86225; 86235; 86256; 86334; 86431-TC; 86706; 86880-TC; 87040-TC; 87045-TC; 87081-TC; 87086-TC; 87177; 87209; 87340; 89055; 90935-TC; 93307-TC; 94799-TC; 97112-TC; 97116-TC; 97530-TC; C9803; G0378; J0360; J0692; J1644; J1650; J3370; J3475; J3490; J7030; J7060; U0003